=== PATIENT | male | born 1960 | race Caucasian/White ===

== ENCOUNTER 2016-10-12 22:17 | Inpatient (IN) | payer OTHER ==
[~2016-10-12] VITALS: Ht 172.7 cm; Wt 90.6 kg
[~2016-10-12 22:17] MED LIST: DOXY100T PO; PRED20 PO; VENTAER INH
[2016-10-12 22:19] VITALS: BP 130/92; PULSE 110; RESP 20; TEMP 98; O2SAT 88
[2016-10-12 22:28] VITALS: BP 131/69; PULSE 109; RESP 28; TEMP 98.4; O2SAT 88
[2016-10-12] MEDS ORDERED: RESP: ALBUTEROL 2.5 MG/IPRATROPIUM 0.5 MG NEB (SCH) ONE (22:32)
[2016-10-12 22:44] VITALS: O2SAT 96
[2016-10-12] MEDS ORDERED: RESP: ALBUTEROL 2.5 MG/IPRATROPIUM 0.5 MG NEB (SCH) INH (22:45)
[2016-10-12] MEDS ORDERED: SODIUM CHLORIDE 0.9% FLUSH 5 ML FLUSH IVF PRN (22:45)
[2016-10-12] MEDS ORDERED: methylPREDNISolone SOD SUCC 125 MG/2 ML VIAL IVP ONE (22:45)
--- NOTE | 2016-10-12 23:01 | RADRPT ---
EXAM DATE/TIME: 10/12/2016 22:50 [facility] COMPARISON: No previous studies available for comparison. INDICATIONS : Shortness of breath. MEDICAL HISTORY : None. SURGICAL HISTORY : None. ENCOUNTER: Initial ACUITY: 1 day PAIN SCORE: 0/10 LOCATION: Bilateral chest FINDINGS: One extensive infiltrate has developed in the left mid and lower lung with bandlike areas of scarring , probably superimposed on underlying bullous emphysematous changes. This has probably been present f or quite some time but is entirely new compared to the 2013 comparison. The right lung remains clear. There is no pleural effusion. No pneumothorax on the right and no definite pneumothorax on the left. Heart size stable, within normal limits. CONCLUSION: Extensive infiltrate with scarring left mid to lower lung has developed since 2013. Sean nAdrew MD on October 12, 2016 at 22:57 Board Certified Radiologist. This report was verified electronically.
[2016-10-12 23:12] LABS: AUTOMATED NEUTROPHIL # 9.1 TH/MM3 (1.8-7.7); BASOPHIL # 0.1 TH/MM3 (0-0.2); BASOPHIL % 0.9 % (0.0-2.0); EOSINOPHIL # 1.1 TH/MM3 (0-0.4); EOSINOPHIL % 8.3 % (0.0-4.0); HEMATOCRIT 36.1 % (39.0-51.0); LYMPH % 10.9 % (9.0-44.0); LYMPHOCYTE # 1.4 TH/MM3 (1.0-4.8); MEAN CELL VOLUME 86.8 FL (80.0-100.0); MEAN CORPUSCULAR HGB CONC 34.6 % (32.0-36.0); MONO % 9.4 % (0.0-8.0); NEUT % 70.5 % (16.0-70.0); PLATELET COUNT 317 TH/MM3 (150-450); RED BLOOD COUNT 4.16 MIL/MM3 (4.50-5.90); RED CELL DISTRIBUTION WIDTH 16.6 % (11.6-17.2); WHITE BLOOD COUNT 12.9 TH/MM3 (4.0-11.0)
[2016-10-12 23:15] LABS: HEMO FLAGS AUTO DIFF
[2016-10-12] MEDS ORDERED: RESP: ALBUTEROL 2.5 MG/IPRATROPIUM 0.5 MG NEB (SCH) INH ONE (23:15)
[2016-10-12 23:20] LABS: APTT (PATIENT) 28.2 SEC (24.3-30.1); INTERNATIONAL NORMALIZED RATIO 1.1 RATIO; PROTHROMBIN TIME - PATIENT 11.8 SEC (9.8-11.6)
[2016-10-12 23:21] LABS: ALT (GPT) 40 U/L (12-78); ANION GAP 8 MEQ/L (5-15); AST (GOT) 21 U/L (15-37); BICARBONATE 25.6 MEQ/L (21.0-32.0); BLOOD UREA NITROGEN 23 MG/DL (7-18); CHLORIDE 105 MEQ/L (98-107); GLOMERULAR FILTRATION RATE 103 ML/MIN (>89); MAGNESIUM 1.7 MG/DL (1.5-2.5); POTASSIUM 3.7 MEQ/L (3.5-5.1); SODIUM (NA) 139 MEQ/L (136-145)
[2016-10-12 23:29] LABS: ALKALINE PHOSPHATASE 103 U/L (45-117); TOTAL BILIRUBIN ADULT 0.5 MG/DL (0.2-1.0)
[2016-10-12 23:30] LABS: CREATINE KINASE 66 U/L (39-308)
--- NOTE | 2016-10-12 23:49 | RADRPT ---
EXAM DATE/TIME: 10/12/2016 22:55 [facility] COMPARISON: No previous studies available for comparison. INDICATIONS : Bilateral leg swelling and shortness of breath. MEDICAL HISTORY : Chronic obstructive pulmonary disease. SURGICAL HISTORY : Left digit repair. ENCOUNTER: Initial ACUITY: 1 day PAIN SCORE: 0/10 LOCATION: Bilateral legs. TECHNIQUE: Venous ultrasound of the left and right leg was performed from the inguinal ligament to the proximal calf. Real-time, color Doppler and spectral tracing, compression and augmentation techniques were us ed. FINDINGS: RIGHT LEG: There is normal compressibility of the deep venous system from the inguinal region to the proximal ca lf. No echogenic clot is seen in the lumen of the common femoral, femoral, popliteal, and posterior tibial veins. There is a normal response of the venous system to proximal and distal augmentation an d respiration. LEFT LEG: There is normal compressibility of the deep venous system from the inguinal region to the proximal ca lf. No echogenic clot is seen in the lumen of the common femoral, femoral, popliteal, and posterior tibial veins. There is a normal response of the venous system to proximal and distal augmentation an d respiration. CONCLUSION: No DVT of either lower extremity. Sean Andrew MD on October 12, 2016 at 23:47 Board Certified Radiologist. This report was verified electronically.
[2016-10-12 23:54] LABS: BANDS 23 % (0-6); EOSINOPHILS 14 % (0-4); NEUTROPHIL # MANUAL DIFF 8.8 TH/MM3 (1.8-7.7); PLATELET ESTIMATE SMEAR NORMAL (NORMAL); PLATELET MORPHOLOGY NORMAL (NORMAL); POLYS (SEG NEUTROPHILS) 45 % (16-70); SCAN/DIFF FINAL DIFF MANUAL; WBC DIFF SAMPLE 100
[2016-10-13] VITALS (10 sets, daily range): BP systolic 97–110; BP diastolic 55–66; PULSE 89–99; RESP 17–28; TEMP 97.4–99.3; O2SAT 93–95
--- NOTE | 2016-10-13 00:23 | PD ---
HPI Chief Complaint: Respiratory Distress Time Seen by Provider: 22:22 Travel History International Travel<30 days: No Contact w/Intl Traveler<30days: No Traveled to known affect area: No History of Present Illness HPI The patient is a 56 year old male who presents to the [facility] emergency department with a history of shortness of breath that has been coming and going for the last 3-4 weeks. He did see his primary care physician regarding this and was given a course of antibiotic for 14 days and a steroid taper over 10 days. He reports that he completed this approximately week and a half ago and the symptoms have worsened again. He reports that he has chest congestion with rattling in his chest, however he is not able to bring anything up consistently. He reports that when he is occasionally able to bring up a brown sputum. He reports that he had a fever yesterday with a MAXIMUM TEMPERATURE of 100.7. He reports having chest tightness, however no chest pain. The patient has had lower extremity edema with pain behind bilateral knees. He denies any prior history of congestive heart failure or coronary artery disease. The patient denies any neck pain, abdominal pain, vomiting, diarrhea, urinary symptoms, or neurologic symptoms. [facility] Past Medical History Narrative Medical The patient's past medical history is significant for COPD. COPD: Yes Respiratory: Yes (copd) Past Surgical History Narrative Surgical The patient's Past surgical history is significant for a left hand surgery. Social History Alcohol Use: No Tobacco Use: Yes (09/15 PPD) Substance Use: Yes (OCCAS MARIJUANA) Allergies-Medications (Allergen,Severity, Reaction): Coded Allergies: No Known Allergies (Unverified , 10/12/16) Reported Meds & Prescriptions Reported Meds & Active Scripts Active Vibramycin (Doxycycline Hyclate) 100 Mg Cap 1 Tab PO BID Deltasone (Prednisone) 20 Mg Tab 2 Tab PO DAILY 5 Days Ventolin Hfa (Albuterol Sulfate) 18 Gm Aero 2 Puff INH Q4 PRN Review of Systems Except as stated in HPI: all other systems reviewed are Neg General / Constitutional: Positive: Fever, Chills Eyes: No: Visual changes HENT: No: Headaches Cardiovascular: Positive: Chest Pain or Discomfort (chest tightness), Dyspnea on exertion Respiratory: Positive: Cough, Shortness of Breath Gastrointestinal: No: Abdominal Pain Genitourinary: No: Dysuria Musculoskeletal: No: Pain Skin: No Rash Neurologic: Positive: Weakness (generalized weakness), No: Focal Abnormalities , Change in Mentation, Slurred Speech, Sensory Disturbance Psychiatric: No: Depression Endocrine: No: Polydipsia Hematologic/Lymphatic: No: Easy Bruising Physical Exam Narrative General: The patient is a well-developed well-nourished male who is uncomfortable appearing due to shortness of breath, sitting forward, using accessory muscles with conversational dyspnea noted Head and Neck exam: Head is normocephalic atraumatic. Eyes: Pupils are equal round and reactive to light. Nose: Midline septum with pink mucous membranes Mouth: Dentition unremarkable. Moist mucus membranes. Posterior oropharynx is slightly erythematous with thrush noted along the posterior oropharynx. No tonsillar hypertrophy. Uvula midline. Airway patent. Neck: No palpable lymphadenopathy. No nuchal rigidity. No thyromegaly. Cardiovascular: Sinus tachycardia in the low 100s without murmurs, gallops, or rubs. No pulse deficit to the extremities and simultaneous auscultation and palpation of his radial artery. Lungs: Soft expiratory wheezes audible throughout bilateral lung grider anteriorly and posteriorly with the prolonged expiratory phase of breathing and accessory muscle use noted. No rhonchi or crackles noted. Abdomen: Soft, without tenderness to palpation in all 4 quadrants of the abdomen. No guarding, rebound, or rigidity. Normal bowel sounds are audible. Extremities: No clubbing or cyanosis with 1+ pitting edema bilateral lower extremities. 2+ pulses in all 4 extremities. The patient has no calf tenderness on palpation. Back: No spinous process tenderness to palpation. No costovertebral angle tenderness to palpation. Neurologic Exam: Grossly nonfocal. Skin Exam: No rash noted. Intact skin that is warm and dry. Data Data Last Documented VS Vital Signs Date Time Temp Pulse Resp B/P Pulse Ox O2 Delivery O2 Flow Rate FiO2 10/12/16 22:44 96 Nasal Cannula 3.00 10/12/16 22:28 98.4 109 28 131/69 Orders Albuterol-Ipratropium Neb (Duoneb Neb) (10/12/16 22:32) Complete Blood Count With Diff (10/12/16 22:33) Comprehensive Metabolic Panel (10/12/16 22:33) B-Type Natriuretic Peptide (10/12/16 22:33) Act Partial Throm Time (Ptt) (10/12/16 22:33) Prothrombin Time / Inr (Pt) (10/12/16 22:33) Magnesium (Mg) (10/12/16 22:33) Ckmb (Isoenzyme) Profile (10/12/16 22:33) Troponin I (10/12/16 22:33) Iv Access Insert/Monitor (10/12/16 22:33) Electrocardiogram (10/12/16 22:33) Ecg Monitoring (10/12/16 22:33) Oximetry (10/12/16 22:33) Oxygen Administration (10/12/16 22:33) Chest, Single Ap (10/12/16 22:33) Sodium Chloride 0.9% Flush (Ns Flush) (10/12/16 22:45) Methylprednisolone So Succ Inj (Solumedr (10/12/16 22:45) Albuterol-Ipratropium Neb (Duoneb Neb) (10/12/16 22:45) Us Leg Venous Doppler Bilat (10/12/16 22:41) B-Type Natriuretic Peptide (10/12/16 22:42) D-Dimer (10/12/16 22:42) Blood Culture (10/12/16 22:49) Lactic Acid Sepsis Protocol (10/12/16 22:49) Albuterol-Ipratropium Neb (Duoneb Neb) (10/12/16 23:15) Ct Pulmonary Angiogram (10/13/16 00:42) Ceftriaxone Inj (Rocephin Inj) (10/13/16 00:45) Azithromycin Inj (Zithromax Inj) (10/13/16 00:45) Iohexol 350 Inj (Omnipaque 350 Inj) (10/13/16 01:02) Admit Order (Ed Use Only) (10/13/16 01:22) Labs Laboratory Tests Test 10/12/16 10/12/16 22:50 23:30 White Blood Count 12.9 TH/MM3 Red Blood Count 4.16 MIL/MM3 Hemoglobin 12.5 GM/DL Hematocrit 36.1 % Mean Corpuscular Volume 86.8 FL Mean Corpuscular Hemoglobin 30.0 PG Mean Corpuscular Hemoglobin 34.6 % Concent Red Cell Distribution Width 16.6 % Platelet Count 317 TH/MM3 Mean Platelet Volume 7.9 FL Neutrophils (%) (Auto) 70.5 % Lymphocytes (%) (Auto) 10.9 % Monocytes (%) (Auto) 9.4 % Eosinophils (%) (Auto) 8.3 % Basophils (%) (Auto) 0.9 % Neutrophils # (Auto) 9.1 TH/MM3 Lymphocytes # (Auto) 1.4 TH/MM3 Monocytes # (Auto) 1.2 TH/MM3 Eosinophils # (Auto) 1.1 TH/MM3 Basophils # (Auto) 0.1 TH/MM3 CBC Comment AUTO DIFF Differential Total Cells 100 Counted Neutrophils % (Manual) 45 % Band Neutrophils % 23 % Lymphocytes % 12 % Monocytes % 6 % Eosinophils % 14 % Neutrophils # (Manual) 8.8 TH/MM3 Differential Comment FINAL DIFF MANUAL Platelet Estimate NORMAL Platelet Morphology Comment NORMAL Prothrombin Time 11.8 SEC Prothromb Time International 1.1 RATIO Ratio Activated Partial 28.2 SEC Thromboplast Time Sodium Level 139 MEQ/L Potassium Level 3.7 MEQ/L Chloride Level 105 MEQ/L Carbon Dioxide Level 25.6 MEQ/L Anion Gap 8 MEQ/L Blood Urea Nitrogen 23 MG/DL Creatinine 0.78 MG/DL Estimat Glomerular Filtration 103 ML/MIN Rate Random Glucose 128 MG/DL Calcium Level 8.5 MG/DL Magnesium Level 1.7 MG/DL Total Bilirubin 0.5 MG/DL Aspartate Amino Transf 21 U/L (AST/SGOT) Alanine Aminotransferase 40 U/L (ALT/SGPT) Alkaline Phosphatase 103 U/L Total Creatine Kinase 66 U/L Troponin I LESS THAN 0.02 NG/ML B-Type Natriuretic Peptide 43 PG/ML 42 PG/ML Total Protein 6.4 GM/DL Albumin 1.9 GM/DL D-Dimer Quantitative (PE/DVT) 5.31 MG/L FEU Lactic Acid Level 0.8 mmol/L [facility] Medical Decision Making Medical Screen Exam Complete: Yes Emergency Medical Condition: Yes Medical Record Reviewed: Yes Interpretation(s) Last Impressions CT Angiography 10/13/16 0042 Signed Impressions: Service Date/Time: Thursday, October 13, 2016 00:56 - CONCLUSION: 1. No pulmonary embolus. 2. Suspected cor pulmonale. 3. Severe emphysema. 4. Essentially complete consolidation of the non-emphysematous portion of the left upper lobe. Numerous fluid and air-filled cystic spaces, nonspecific. This may be inability to clear secretions from the bulla. Pulmonary abscesses not excludable. 5. Mediastinal and left hilar lymphadenopathy. Sean Andrew MD Lower Extremity Ultrasound 10/12/162240 Signed Impressions: Service Date/Time: Wednesday, October 12, 2016 22:55 - CONCLUSION: No DVT of either lower extremity. Sean Andrew MD Chest X-Ray 10/12/162232 Signed Impressions: Service Date/Time: Wednesday, October 12, 2016 22:50 - CONCLUSION: Extensive infiltrate with scarring left mid to lower lung has developed since 2013. Sean Andrew MD Differential Diagnosis COPD exacerbation, versus pneumonia, versus pulmonary embolism, versus acute coronary syndrome, versus acute bronchitis, versus pulmonary fibrosis Narrative Course During the course of the patients emergency department visit, the patients history, examination, and differential diagnosis were reviewed with the patient. The patient had IV access obtained and blood work sent for analysis. The patient was placed on a central communications specialist with oximetry and blood pressure monitoring. An ultrasound of bilateral lower extremities was ordered to evaluate for possible DVT. The patient was provided DuoNeb nebs 3, Solu-Medrol 125 mg IV, Rocephin 1 g IV , Zithromax 500 IV. The patients laboratory studies were reviewed and remarkable for a d-dimer that was elevated, therefore CTA to rule out PE was ordered. White count was elevated at 12 with a left shift. Lactic acid was 0.8. Cardiac enzymes were negative. BNP within normal limits. Radiology studies were reviewed and remarkable for CTA to rule out PE was negative. Chest x-ray showed a left middle to lower infiltrate. CT scan of the chest revealed evidence of emphysematous changes. The patients results were discussed with the patient, including the plan of care. I explained that further testing and/ or monitoring is indicated based on the patients history, examination, and/ or laboratory findings. Therefore, I recommended admission for additional evaluation. The patient expressed understanding and was agreeable with this plan. The patient was admitted to the hospital in stable condition and [facility] Sepsis Criteria SIRS Criteria (2 or more): Heart rate over 90, RR > 20 or PaCO2 < 32, WBC > 88948, < 4000 or > 10% bands Sepsis Criteria (SIRS+source): Infect source susp/known Physician Communication Physician Communication The patient's case is discussed with Dr. Patino who did agree to admit the patient for further evaluation and treatment at this time. Diagnosis Primary Impression: PNA (pneumonia) Qualified Code: J18.9 - Pneumonia of left lung due to infectious organism, unspecified part of lung Additional Impressions: Sepsis Qualified Code: A41.9 - Sepsis, due to unspecified organism COPD exacerbation Admitting Information Admitting Physician Requests: Admit Isabelle Burkett MD Oct 13, 2016 00:23
[2016-10-13] MEDS ORDERED: cefTRIAXone INJ 1,000 MG in SODIUM CHLORIDE 0.9% INJ 100 ML IV ONE (00:45)
[2016-10-13] MEDS ORDERED: AZITHROMYCIN INJ 500 MG in SODIUM CHLOR 0.9% 250 ML INJ 250 ML IV ONE (00:45)
[2016-10-13] MEDS ORDERED: IOHEXOL 350 MG/ML 10 ML VIAL (for RAD DIAG) IV ONE (01:02)
--- NOTE | 2016-10-13 01:27 | RADRPT ---
EXAM DATE/TIME: 10/13/2016 00:56 [facility] COMPARISON: No previous studies available for comparison. INDICATIONS : Short of breath x1 month. IV CONTRAST: 75 cc Omnipaque 350 (iohexol) IV RADIATION DOSE: 17.39 CTDIvol (mGy) MEDICAL HISTORY : Chronic obstructive pulmonary disease. SURGICAL HISTORY : None. ENCOUNTER: Initial ACUITY: 1 month PAIN SCALE: 0/10 LOCATION: chest TECHNIQUE: Volumetric scanning of the chest was performed using a pulmonary embolism protocol MIP images were re constructed. Using automated exposure control and adjustment of the mA and/or kV according to patien t size, radiation dose was kept as low as reasonably achievable to obtain optimal diagnostic quality images. FINDINGS: There is no pulmonary embolus. Central pulmonary arteries have prominent caliber typical of pulmonary hypertension and likely on the basis of cor pulmonale. Heart size within normal limits. Severe bilateral emphysema noted. There is extensive consolidation of the non-emphysematous port ion of the left upper lobe, including the lingular division. Within the consolidated left upper lobe are scattered air and fluid-filled cystic spaces that measure up between one and 4 cm in size. There is a 2.7 cm left hilar lymph node. There are also mediastinal lymph nodes, most prominent in the AP w indow, that measure up to 2.7 cm in size. No pleural effusion. No pneumothorax. CONCLUSION: 1. No pulmonary embolus. 2. Suspected cor pulmonale. 3. Severe emphysema. 4. Essentially complete consolidation of the non-emphysematous portion of the left upper lobe. Basim us fluid and air-filled cystic spaces, nonspecific. This may be inability to clear secretions from th e bulla. Pulmonary abscesses not excludable. 5. Mediastinal and left hilar lymphadenopathy. Sean Andrew MD on October 13, 2016 at 1:20 Board Certified Radiologist. This report was verified electronically.
[2016-10-13] MEDS ORDERED: ONDANSETRON HCL 4 MG/2 ML VIAL IVP PRN (02:00)
[2016-10-13] MEDS ORDERED: ACETAMINOPHEN/HYDROcodone 325 MG/5 MG TAB PO PRN (02:00)
[2016-10-13] MEDS ORDERED: SODIUM CHLORIDE 0.9% FLUSH 5 ML FLUSH FLUSH PRN (02:00)
[2016-10-13] MEDS ORDERED: ACETAMINOPHEN/HYDROcodone 325 MG/10 MG TAB PO PRN (02:00)
[2016-10-13] MEDS ORDERED: RESP: ALBUTEROL 2.5 MG/IPRATROPIUM 0.5 MG NEB (PRN) NEB (02:00)
[2016-10-13] MEDS ORDERED: ACETAMINOPHEN 325 MG TAB PO PRN (02:00)
[2016-10-13] MEDS ORDERED: BISACODYL 10 MG SUPP PR PRN (02:00)
--- NOTE | 2016-10-13 02:46 | HHI.HP ---
[facility], Admission Diagnosis COPD exacerbation, hypoxia on Room air, Pneumonia Diagnoses: (1) COPD (chronic obstructive pulmonary disease) Diagnosis: Principal (2) PNA (pneumonia) Diagnosis: Principal (3) Hypoxia Diagnosis: Principal (4) Tobacco abuse Diagnosis: [place] Travel History International Travel<30 Days: No Contact w/Intl Traveler <30 Da: No Traveled to Known Affected Are: No History of Present Illness This is a 56-year-old male with a PMH of COPD and Tobacco Abuse who presented to the ER with complaints of SOB and wheezing. States symptoms started approx 3wks ago, seen by PCP and given Medrol Dosepak and Doxycycline 100mg bid x14 days which he completed. States he's been having ongoing SOB since then in addition to productive cough w/ brown-colored sputum. +fever at home w/ Temp 100.7. No chest pain or sick contacts. On arrival, BP 130/92, HR 110, O2 sat 88% on RA, Afebrile. WBC 12.9. Chemistry essentially unremarkable. CXR with extensive infiltrate left mid to lower lung. CTA Pulm negative for PE, suspected cor pulmonale, severe emphysema and essentially complete consolidation of LAURA w/ possible pulmonary abscesses. S/p Rocephin/Zithro in ER in addition to Blood Cultures. Review of Systems Other ROS: 14 point review of systems otherwise negative. Past Family Social History Past Medical History PMH: COPD and Tobacco Abuse Past Surgical History PAST SURGICAL HISTORY: Left Hand Surgery Allergies: Coded Allergies: No Known Allergies (Unverified , 10/12/16) Family History PAST FAMILY HISTORY: Reviewed. No h/o DM or CAD Social History PAST SOCIAL HISTORY: Negative for alcohol. Smokes 1/2ppd. Occasional Marijuan. Physical Exam Vital Signs Vital Signs Date Time Temp Pulse Resp B/P Pulse Ox O2 Delivery O2 Flow Rate FiO2 10/12/16 22:44 96 Nasal Cannula 3.00 10/12/16 22:28 98.4 109 28 131/69 88 10/12/16 22:28 95 Nasal Cannula 2 10/12/16 22:28 28 95 Nasal Cannula 2 10/12/16 22:19 98.0 110 20 130/92 88 Physical Exam PE: GENERAL: Middle-aged white male in no acute distress. HEENT: PERRLA, EOMI. No scleral icterus or conjunctival pallor. No lid lag or facial droop. CARDIOVASCULAR: Regular rate and rhythm. No obvious murmurs to auscultation. No chest tenderness to palpation. RESPIRATORY: No obvious rhonchi. +wheezing. Clear to auscultation. Breath sounds equal bilaterally. GASTROINTESTINAL: Abdomen soft, non-tender, nondistended. BS normal. MUSCULOSKELETAL: Extremities without clubbing, cyanosis, or edema. No obvious deformities. NEUROLOGICAL: Awake, alert and oriented x4. No focal neurologic deficits. Moving both upper and lower extremities spontaneously. Laboratory Laboratory Tests Test 10/12/16 10/12/16 22:50 23:30 White Blood Count 12.9 Red Blood Count 4.16 Hemoglobin 12.5 Hematocrit 36.1 Mean Corpuscular Volume 86.8 Mean Corpuscular Hemoglobin 30.0 Mean Corpuscular Hemoglobin 34.6 Concent Red Cell Distribution Width 16.6 Platelet Count 317 Mean Platelet Volume 7.9 Neutrophils (%) (Auto) 70.5 Lymphocytes (%) (Auto) 10.9 Monocytes (%) (Auto) 9.4 Eosinophils (%) (Auto) 8.3 Basophils (%) (Auto) 0.9 Neutrophils # (Auto) 9.1 Lymphocytes # (Auto) 1.4 Monocytes # (Auto) 1.2 Eosinophils # (Auto) 1.1 Basophils # (Auto) 0.1 CBC Comment AUTO DIFF Differential Total Cells 100 Counted Neutrophils % (Manual) 45 Band Neutrophils % 23 Lymphocytes % 12 Monocytes % 6 Eosinophils % 14 Neutrophils # (Manual) 8.8 Differential Comment FINAL DIFF MANUAL Platelet Estimate NORMAL Platelet Morphology Comment NORMAL Prothrombin Time 11.8 Prothromb Time International 1.1 Ratio Activated Partial 28.2 Thromboplast Time Sodium Level 139 Potassium Level 3.7 Chloride Level 105 Carbon Dioxide Level 25.6 Anion Gap 8 Blood Urea Nitrogen 23 Creatinine 0.78 Estimat Glomerular Filtration 103 Rate Random Glucose 128 Calcium Level 8.5 Magnesium Level 1.7 Total Bilirubin 0.5 Aspartate Amino Transf 21 (AST/SGOT) Alanine Aminotransferase 40 (ALT/SGPT) Alkaline Phosphatase 103 Total Creatine Kinase 66 Troponin I LESS THAN 0.02 B-Type Natriuretic Peptide 43 42 Total Protein 6.4 Albumin 1.9 D-Dimer Quantitative (PE/DVT) 5.31 Lactic Acid Level 0.8 Date/Time Procedure Status Source Growth 10/12/16 23:35 Aerobic Blood Culture Received Blood Peripheral Pending 10/12/16 23:35 Anaerobic Blood Culture Received Blood Peripheral Pending Result Diagram: 10/12/16224910/12/162249 Assessment and Plan Problem List: (1) COPD (chronic obstructive pulmonary disease) ICD Code: J44.9 Status: Acute (2) Hypoxia ICD Code: R09.02 Status: Acute (3) PNA (pneumonia) ICD Code: J18.9 Status: Acute (4) Tobacco abuse ICD Code: Z72.0 Status: Acute Assessment and Plan A/P: 1. COPD: Chronic Respiratory Failure w/ Acute Exacerbation and Hypoxia, O2 sat 88% on arrival. +wheezing, +accessory muscles, s/p Solu-Medrol, DuoNeb. Continue w/ Solu-Medrol, DuoNeb, Mucinex, Symbicort. 2. PNA: CXR w/ extensive infiltrate and scarring left mid to lower lung, CTA pulm negative for PE, likely cor pulmonale, severe emphysema, near complete consolidation LAURA and possible pulmonary abscesses, images reviewed by me. S/p Blood Cultures, Rocephin/Zithro in ER. Follow up Blood Cultures, check Sputum Cultures, continue w/ IV Abx. Pulmonary Consult 3. Tobacco Abuse: Counselled. Ativan/NicoDerm if needed. 4. DVT Prophylaxis: SCD/Teds. 5. Social work for d/c planning as needed. 6. Case discussed w/ ER physician at length. Physician Certification 2 Midnight Certification Type: Admission for Inpatient Services Order for Inpatient Services The services are ordered in accordance with Medicare regulations or non- Medicare payer requirements, as applicable. In the case of services not specified as inpatient-only, they are appropriately provided as inpatient services in accordance with the 2-midnight benchmark. Estimated LOS (days): 2 days is the estimated time the patient will need to remain in the hospital, assuming treatment plan goals are met and no additional complications. Post-Hospital Plan: Not yet determined Kim Patino MD Oct 13, 2016 02:46
[2016-10-13] MEDS: SODIUM CHLORIDE 0.9% FLUSH 5 ML FLUSH FLUSH SCH ×2 (07:43→22:42)
[2016-10-13] MEDS: guaiFENesin E.R. 600 MG TAB PO SCH ×2 (07:43→22:42)
[2016-10-13] MEDS: methylPREDNISolone SOD SUCC 40 MG/1 ML VIAL IV PUSH SCH ×3 (07:43→17:28)
[2016-10-13] MEDS: BUDESONIDE-FORMOTEROL 160/4.5 MCG INHALER INH SCH ×2 (07:43→22:41)
--- NOTE | 2016-10-13 08:31 | EKG ---
Date Performed: 10/12/2016 Time Performed: 23:55:20 PTAGE: 56 years EKG: SINUS TACHYCARDIA WITH SHORT OH INTERVAL ABNORMAL RHYTHM ECG PREVIOUS TRACING : 12/10/2013 08.11 No significant change from previous tracing noted. DOCTOR: Bartolome Shah Interpretating Date/Time 10/13/2016 08:29:41
[2016-10-13] MEDS: RESP: ALBUTEROL 2.5 MG/IPRATROPIUM 0.5 MG NEB (SCH) NEB ×4 (08:36→20:21)
[2016-10-13] MEDS ORDERED: Vancomycin Consult Pharmacy 1 EA OTHER SCH (12:30)
[2016-10-13] MEDS: PIPERACIL-TAZO 4.5 GM PREMIX 100 ML IV SCH ×2 (13:16→22:42)
[2016-10-13] MEDS: VANCOMYCIN INJ 1,500 MG in SODIUM CHLORID 0.9% 500 ML INJ 500 ML IV SCH (14:16)
--- NOTE | 2016-10-13 16:08 | HHI.PR ---
Addendum To [facility] Progress Not Reason for addendum: Additonal documentation (The pt was getting a breathing treatment. He said he felt a lot better. Discussed with pulmonology. Continue antibiotics, switch to vancomycin and Zosyn. Continue steroids and nebs. Add incentive spirometry. Encourage ambulation. Add Ensure for low albumin, likely contributing to LE edema. Sputum culture requested. Follow up with pulmonology.) Willard Cosby DO Oct 13, 2016 16:08
[2016-10-14] VITALS (10 sets, daily range): BP systolic 92–118; BP diastolic 51–69; PULSE 81–97; RESP 17–28; TEMP 97.2–98.1; O2SAT 93–95
[2016-10-14] MEDS: methylPREDNISolone SOD SUCC 40 MG/1 ML VIAL IV PUSH SCH ×4 (00:01→17:47)
[2016-10-14] MEDS ORDERED: AZITHROMYCIN INJ 500 MG in SODIUM CHLOR 0.9% 250 ML INJ 250 ML IV SCH (01:00)
[2016-10-14] MEDS: PIPERACIL-TAZO 4.5 GM PREMIX 100 ML IV SCH ×2 (01:16→08:48)
[2016-10-14] MEDS ORDERED: cefTRIAXone INJ 1,000 MG in SODIUM CHLORIDE 0.9% INJ 100 ML IV SCH (02:00)
[2016-10-14] MEDS: VANCOMYCIN INJ 1,500 MG in SODIUM CHLORID 0.9% 500 ML INJ 500 ML IV SCH (02:00)
[2016-10-14 06:56] LABS: AUTOMATED NEUTROPHIL # 12.7 TH/MM3 (1.8-7.7); BASOPHIL % 0.2 % (0.0-2.0); EOSINOPHIL % 0.1 % (0.0-4.0); HEMATOCRIT 30.4 % (39.0-51.0); HEMO FLAGS DIFF FINAL; LYMPH % 7.8 % (9.0-44.0); LYMPHOCYTE # 1.2 TH/MM3 (1.0-4.8); MEAN CELL VOLUME 86.7 FL (80.0-100.0); MEAN CORPUSCULAR HEMOGLOBIN 29.8 PG (27.0-34.0); MEAN CORPUSCULAR HGB CONC 34.4 % (32.0-36.0); MONO % 5.2 % (0.0-8.0); NEUT % 86.7 % (16.0-70.0); PLATELET COUNT 320 TH/MM3 (150-450); RED BLOOD COUNT 3.51 MIL/MM3 (4.50-5.90); RED CELL DISTRIBUTION WIDTH 16.9 % (11.6-17.2); WHITE BLOOD COUNT 14.7 TH/MM3 (4.0-11.0)
--- NOTE | 2016-10-14 07:16 | MB ---
cc: BRONSON CARRION DATE OF CONSULTATION 10/13/2016 REASON FOR CONSULTATION COPD with exacerbation. HISTORY OF PRESENT ILLNESS This is a 56-year-old white male with past history of COPD and emphysema, has been a smoker for more than 45 years. The patient apparently had some bronchitis since the past three weeks and was treated with oral antibiotics including doxycycline and Medrol and he failed to improve. He was bringing up thick brownish-yellow mucous, ran a fever of up to 100.6 and he was advised to come in for evaluation and admission. Upon arrival, a chest x-ray was done which showed which showed an extensive left lung infiltrate. CTA was done which showed some hilar and mediastinal adenopathy on the left side. The patient has been short of breath and thus on oxygen at 2 liters and started on IV Rocephin and Zithromax. He has no hemoptysis but has lost some weight. PAST HISTORY COPD with emphysema. History of hand surgery on the left. HABITS The patient smokes half to one pack per day. Previously smoked one to two packs per day for over 40 years. Alcohol use - None recently. He uses marijuana occasionally. FAMILY HISTORY Noncontributory. REVIEW OF SYSTEMS The patient has lost weight. He has sinus disease, postnasal drip. He has some epigastric distress and reflux. Denies nausea, vomiting. No GI bleed. He has no leg or calf muscle pains. She has some joint pains of his extremities. ALLERGIES None listed. PHYSICAL EXAMINATION GENERAL: This averagely built middle-aged white male was in no acute distress. VITAL SIGNS: Blood pressure 130/70, pulse is 105, respirations 20, temperature 98.5. HEENT: Head normocephalic. Pupils are reactive. Tongue is moist. Throat is injected. Nasal mucosae edematous. NECK: Supple. No bruits or thyroid enlargement. CHEST: Distant breath sounds with expiratory wheezes throughout both lung grider. Occasional crackles over the left mid and lower chest and right lung base. HEART SOUNDS: Irregular S1 and S2 with no murmur. No S3 gallop. ABDOMEN: The abdomen is soft and protuberant without masses. No organomegaly or tenderness. The bowel sounds are active. EXTREMITIES: No lesions. No edema. NEUROLOGIC: Reflexes are 1+ with no gross motor deficits. SKIN: No lesions observed. IMPRESSION 1. Extensive left lower lobe pneumonia and hilar adenopathy. 2. Chronic obstructive pulmonary disease with emphysema and chronic bronchitis. 3. Nicotine dependency. 4. Rule out obstructive pneumonitis. PLAN 1. The patient will be maintained on antibiotic coverage including Rocephin 2 gm IV daily, Zithromax 500 mg IV daily. 2. Solu-Medrol 40 mg IV q.6 hours. 3. Sputum will be sent for Gram's stain and culture. 4. Nebulized DuoNeb solution added q.i.d. 5. A repeat chest x-ray will be obtained. If the infiltrate does not significantly clear, the patient may need a bronchoscopy for evaluation of the left lower lobe bronchus. 6. Pulmonary function studies will also be ordered when he is clinically stable. I will follow the case with you Dr. Patino; thank you for this consultation. Bronson Carrion MD JMADELINE/AMANDA /5:58 PM /6:59 AM
[2016-10-14 07:21] LABS: ALT (GPT) 39 U/L (12-78); ANION GAP 8 MEQ/L (5-15); AST (GOT) 15 U/L (15-37); BICARBONATE 26.8 MEQ/L (21.0-32.0); BLOOD UREA NITROGEN 31 MG/DL (7-18); CHLORIDE 108 MEQ/L (98-107); GLOMERULAR FILTRATION RATE 88 ML/MIN (>89); SODIUM (NA) 143 MEQ/L (136-145)
[2016-10-14 07:23] LABS: ALKALINE PHOSPHATASE 85 U/L (45-117); TOTAL BILIRUBIN ADULT 0.3 MG/DL (0.2-1.0)
[2016-10-14] MEDS: RESP: ALBUTEROL 2.5 MG/IPRATROPIUM 0.5 MG NEB (SCH) NEB ×4 (08:10→19:16)
[2016-10-14] MEDS: guaiFENesin E.R. 600 MG TAB PO SCH ×2 (08:48→20:58)
[2016-10-14] MEDS: SODIUM CHLORIDE 0.9% FLUSH 5 ML FLUSH FLUSH SCH ×2 (08:48→20:57)
[2016-10-14] MEDS: BUDESONIDE-FORMOTEROL 160/4.5 MCG INHALER INH SCH ×2 (08:48→20:58)
[2016-10-14] MEDS ORDERED: LEVOFLOXACIN 750 MG PREMIX INJ 150 ML IV SCH (11:45)
--- NOTE | 2016-10-14 12:01 | HHI.PR ---
Subjective Remarks The patient says that his breathing is better. He still says he is very short of breath upon ambulation and at rest. He says he typically wakes up 3 times a night for shortness of breath. He says his appetite is unchanged. Objective Vitals Vital Signs Date Time Temp Pulse Resp B/P Pulse Ox O2 Delivery O2 Flow Rate FiO2 10/14/16 08:12 93 Nasal Cannula 4.00 10/14/16 08:00 97.9 82 28 96/54 93 10/14/16 07:45 87 10/14/16 04:00 97.2 84 20 102/58 94 10/14/16 00:00 98.0 97 20 102/59 94 10/13/16 20:23 93 Nasal Cannula 3.00 10/13/16 20:09 99 10/13/16 20:00 98.0 98 22 97/56 94 10/13/16 16:00 99.3 91 28 101/58 93 10/13/16 12:00 97.9 94 28 100/66 94 I/O 10/13/16 10/13/16 10/13/16 10/14/16 10/14/16 10/14/16 07:00 15:00 23:00 07:00 15:00 23:00 Intake Total 240 ml 240 ml 802 ml 748 ml Balance 240 ml 240 ml 802 ml 748 ml Intake Oral 240 ml 240 ml 240 ml 240 ml IV Total 562 ml 508 ml # Voids 2 4 1 3 # Bowel Movements 0 0 0 Result Diagram: 10/14/16 0631 10/14/16 [address] Angiography 10/13/16 0042 Signed Impressions: Service Date/Time: Thursday, October 13, 2016 00:56 - CONCLUSION: 1. No pulmonary embolus. 2. Suspected cor pulmonale. 3. Severe emphysema. 4. Essentially complete consolidation of the non-emphysematous portion of the left upper lobe. Numerous fluid and air-filled cystic spaces, nonspecific. This may be inability to clear secretions from the bulla. Pulmonary abscesses not excludable. 5. Mediastinal and left hilar lymphadenopathy. Sean Andrew MD Lower Extremity Ultrasound 10/12/16 9741 Signed Impressions: Service Date/Time: Wednesday, October 12, 2016 22:55 - CONCLUSION: No DVT of either lower extremity. Sean Andrew MD Chest X-Ray 10/12/16 4170 Signed Impressions: Service Date/Time: Wednesday, October 12, 2016 22:50 - CONCLUSION: Extensive infiltrate with scarring left mid to lower lung has developed since 2013. Sean Andrew MD Objective Remarks GENERAL: No acute distress. HEENT: PERRLA, EOMI. No scleral icterus or conjunctival pallor. No lid lag or facial droop. CARDIOVASCULAR: Regular rate and rhythm. No obvious murmurs to auscultation. No chest tenderness to palpation. RESPIRATORY: Diffuse wheezing. Breath sounds equal bilaterally. GASTROINTESTINAL: Abdomen soft, non-tender, nondistended. BS normal. MUSCULOSKELETAL: Extremities without clubbing, cyanosis, or edema. No obvious deformities. NEUROLOGICAL: Awake, alert and oriented x4. No focal neurologic deficits. Moving both upper and lower extremities spontaneously. PSYCH: Mood and affect appropriate. Medications and IVs Current Medications Medications (Trade) Dose Ordered Sig/[place] Route Start Time Stop Time Status Last Admin (SoluMEDROL INJ) 40 mg Q6HR IV PUSH 10/13/16 06:00 10/14/16 11:17 (Mucinex Er) 600 mg BID PO 10/13/16 09:00 10/14/16 08:48 (Symbicort 160-4.5 Inh) 2 puff Q12HR INH 10/13/16 09:00 10/14/16 08:48 (NS Flush) 2 ml UNSCH PRN FLUSH 10/13/16 02:00 (NS Flush) 2 ml BID FLUSH 10/13/16 09:00 10/14/16 08:48 (Zofran Inj) 4 mg Q6H PRN IVP 10/13/16 02:00 (Dulcolax Supp) 10 mg DAILY PRN [place] 10/13/16 02:00 (Tylenol) 650 mg Q6H PRN PO 10/13/16 02:00 ([place] 5-325 Mg) 1 tab Q4H PRN PO 10/13/16 02:00 Acetaminophen/ Hydrocodone Bitart 1 tab 1 tab Q4H PRN PO 10/13/16 02:00 (Levaquin 750 Mg Premix Inj) 150 ml @ 100 mls/hr Q24H IV 10/14/16 11:45 UNV A/P Problem List: (1) COPD (chronic obstructive pulmonary disease) ICD Code: J44.9 Status: Acute (2) Hypoxia ICD Code: R09.02 Status: Acute (3) PNA (pneumonia) ICD Code: J18.9 Status: Acute (4) Tobacco abuse ICD Code: Z72.0 Status: Acute Assessment and Plan PNA/ COPD The pt has diffuse wheezing on exam. CXR w/ extensive infiltrate and scarring left mid to lower lung, CTA pulm negative for PE, likely cor pulmonale, severe emphysema, near complete consolidation LAURA. Pulmonology consult appreciated. - Blood and sputum cultures. - continue Rocephin/Zithro. - follow up with pulmonary. Bronch if needed. - Continue w/ Solu-Medrol, DuoNeb, Mucinex, Symbicort. - incentive spirometry. - encourage ambulation. Tobacco Abuse Counselled. - Ativan/NicoDerm if needed. Hyperglycemia S/t steroid use. - monitor glucose and wean steroids as tolerated. DVT Prophylaxis: SCD/Teds. Discharge Planning Awaiting clinical improvement. Problem Qualifiers (1) PNA (pneumonia): Qualified Code: J18.9 - Pneumonia of left lung due to infectious organism, unspecified part of lung Willard Cosby DO Oct 14, 2016 12:00
[2016-10-14] MEDS ORDERED: DEXTROSE 50% IN WATER 50 ML VIAL(D50) IV PRN (12:15)
[2016-10-14] MEDS ORDERED: GLUCAGON 1 MG/ML VIAL OTHER PRN (12:15)
[2016-10-14] MEDS: cefTRIAXone INJ 1,000 MG in SODIUM CHLORIDE 0.9% INJ 100 ML IV SCH (13:55)
[2016-10-14] MEDS: AZITHROMYCIN INJ 500 MG in SODIUM CHLOR 0.9% 250 ML INJ 250 ML IV SCH (15:09)
[2016-10-14] MEDS: INSULIN ASPART SUPPLEMENTAL SCALE SQ SCH ×2 (16:41→20:58)
--- NOTE | 2016-10-14 19:27 | HHI.PR ---
Subjective Remarks Doing better. Still has wheezing and a cough, with yellow sputum Objective Vital Signs Date Time Temp Pulse Resp B/P Pulse Ox O2 Delivery O2 Flow Rate FiO2 10/14/16 16:00 98.0 90 24 93/54 95 10/14/16 15:54 95 Nasal Cannula 4.00 10/14/16 12:15 95 Nasal Cannula 4.00 10/14/16 12:00 98.1 90 20 92/51 95 10/14/16 08:12 93 Nasal Cannula 4.00 10/14/16 08:00 97.9 82 28 96/54 93 10/14/16 07:45 87 10/14/16 04:00 97.2 84 20 102/58 94 10/14/16 00:00 98.0 97 20 102/59 94 10/13/16 20:23 93 Nasal Cannula 3.00 10/13/16 20:09 99 10/13/16 20:00 98.0 98 22 97/56 94 I/O 10/13/16 10/13/16 10/13/16 10/14/16 10/14/16 10/14/16 07:00 15:00 23:00 07:00 15:00 23:00 Intake Total 240 ml 240 ml 802 ml 748 ml 580 ml Balance 240 ml 240 ml 802 ml 748 ml 580 ml Intake Oral 240 ml 240 ml 240 ml 240 ml 580 ml IV Total 562 ml 508 ml # Voids 2 4 1 3 # Bowel Movements 0 0 0 1 Result Diagram: 10/14/16 0631 10/14/16 0631 Objective Remarks GENERAL: This averagely built middle-aged white male was in no acute distress. HEENT: Head normocephalic. Pupils are reactive. Tongue is moist. Throat is injected. Nasal mucosae edematous. NECK: Supple. No bruits or thyroid enlargement. CHEST: Distant breath sounds with expiratory wheezes throughout both lung grider. Occasional crackles over the left lower chest and right lung base. HEART SOUNDS: Irregular S1 and S2 with no murmur. No S3 gallop. ABDOMEN: The abdomen is soft and protuberant without masses. No organomegaly or tenderness. The bowel sounds are active. EXTREMITIES: No lesions. No edema. NEUROLOGIC: Reflexes are 1+ with no gross motor deficits. SKIN: No lesions observed. Assessment and Plan Assessment and Plan IMPRESSION 1. Extensive left lower lobe pneumonia and hilar adenopathy. 2. Chronic obstructive pulmonary disease with emphysema and chronic bronchitis. 3. Nicotine dependency. 4. Rule out obstructive pneumonitis. Plan : 1. Continue antibiotics , Rocephin , And Zithromax 2. Nebs qid , duoneb. 3. O2 at 3 L. 4. Chest X daiana and PFTs. 5. Continue Symbicort Inhaler 2 puffs bid 6. Will consider Bronchoscopy when acute symptoms have improved. Salas Carrion MD Oct 14, 2016 19:27
[2016-10-15] VITALS (9 sets, daily range): BP systolic 96–117; BP diastolic 52–59; PULSE 82–99; RESP 18–20; TEMP 97.4–98.7; O2SAT 91–97
[2016-10-15] MEDS: methylPREDNISolone SOD SUCC 40 MG/1 ML VIAL IV PUSH SCH ×4 (00:44→21:05)
[2016-10-15] MEDS ORDERED: PHARMACY ORDERED LAB XX ONE (01:45)
[2016-10-15] MEDS: INSULIN ASPART SUPPLEMENTAL SCALE SQ SCH ×4 (05:29→22:04)
[2016-10-15] MEDS: RESP: ALBUTEROL 2.5 MG/IPRATROPIUM 0.5 MG NEB (SCH) NEB ×4 (08:00→20:48)
[2016-10-15 08:12] LABS: BASOPHIL % 0.2 % (0.0-2.0); HEMATOCRIT 32.9 % (39.0-51.0); HEMO FLAGS DIFF FINAL; LYMPH % 9.5 % (9.0-44.0); LYMPHOCYTE # 1.2 TH/MM3 (1.0-4.8); MEAN CELL VOLUME 87.8 FL (80.0-100.0); MEAN CORPUSCULAR HEMOGLOBIN 29.4 PG (27.0-34.0); MEAN CORPUSCULAR HGB CONC 33.5 % (32.0-36.0); MONO % 4.5 % (0.0-8.0); NEUT % 85.8 % (16.0-70.0); PLATELET COUNT 370 TH/MM3 (150-450); RED BLOOD COUNT 3.75 MIL/MM3 (4.50-5.90); RED CELL DISTRIBUTION WIDTH 16.7 % (11.6-17.2); WHITE BLOOD COUNT 12.9 TH/MM3 (4.0-11.0)
[2016-10-15] MEDS: guaiFENesin E.R. 600 MG TAB PO SCH ×2 (09:07→21:04)
[2016-10-15] MEDS: BUDESONIDE-FORMOTEROL 160/4.5 MCG INHALER INH SCH ×2 (09:07→21:05)
[2016-10-15] MEDS: SODIUM CHLORIDE 0.9% FLUSH 5 ML FLUSH FLUSH SCH ×2 (09:07→22:05)
--- NOTE | 2016-10-15 09:08 | RADRPT ---
EXAM DATE/TIME: 10/15/2016 06:20 [facility] COMPARISON: CHEST SINGLE AP, October 12, 2016, 22:50. INDICATIONS : Cough and fever. MEDICAL HISTORY : pneumonia SURGICAL HISTORY : None. ENCOUNTER: Initial ACUITY: 3 weeks PAIN SCORE: 4/10 LOCATION: Bilateral upper chest FINDINGS: Comparison is October 03. Extensive airspace disease in the left perihilar region and left base is si milar to prior study. Mild right basilar opacity. There is underlying bullous emphysema. No pneumotho rax. CONCLUSION: 1. Relatively stable consolidation of the left lateral since October 12. Bullous emphysema. Helio Miner MD on October 15, 2016 at 9:02 Board Certified Radiologist. This report was verified electronically.
--- NOTE | 2016-10-15 13:40 | HHI.PR ---
Subjective Remarks The patient said that he felt better. He said he talked to the cork mixer earlier and was planning for a procedure tomorrow. He has been ambulating. He has been having bowel movements. He still feels a little congested. Objective Vitals Vital Signs Date Time Temp Pulse Resp B/P Pulse Ox O2 Delivery O2 Flow Rate FiO2 10/15/16 12:22 98.0 96 18 106/58 93 10/15/16 09:05 97.5 83 20 104/59 93 10/15/16 08:03 96 Nasal Cannula 2.00 10/15/16 04:00 97.9 82 18 96/59 93 10/15/16 00:00 97.4 85 18 97/59 94 10/14/16 20:00 97.2 81 17 118/69 95 10/14/16 16:00 98.0 90 24 93/54 95 10/14/16 15:54 95 Nasal Cannula 4.00 I/O 10/14/16 10/14/16 10/14/16 10/15/16 10/15/16 10/15/16 07:00 15:00 23:00 07:00 15:00 23:00 Intake Total 748 ml 580 ml 600 ml 240 ml Balance 748 ml 580 ml 600 ml 240 ml Intake Oral 240 ml 580 ml 600 ml 240 ml IV Total 508 ml # Voids 3 6 2 # Bowel Movements 0 1 Result Diagram: 10/15/16 0646 10/14/16 0631 Imaging Last Impressions Chest X-Ray 10/15/16 0600 Signed Impressions: Service Date/Time: Saturday, October 15, 2016 06:20 - CONCLUSION: 1. Relatively stable consolidation of the left lateral since October 12. Bullous emphysema. Helio Miner MD CT Angiography 10/13/16 0042 Signed Impressions: Service Date/Time: Thursday, October 13, 2016 00:56 - CONCLUSION: 1. No pulmonary embolus. 2. Suspected cor pulmonale. 3. Severe emphysema. 4. Essentially complete consolidation of the non-emphysematous portion of the left upper lobe. Numerous fluid and air-filled cystic spaces, nonspecific. This may be inability to clear secretions from the bulla. Pulmonary abscesses not excludable. 5. Mediastinal and left hilar lymphadenopathy. Sean Andrew MD Lower Extremity Ultrasound 10/12/16 2441 Signed Impressions: Service Date/Time: Wednesday, October 12, 2016 22:55 - CONCLUSION: No DVT of either lower extremity. Sean Andrew MD Objective Remarks GENERAL: No acute distress. HEENT: PERRLA, EOMI. No scleral icterus or conjunctival pallor. No lid lag or facial droop. CARDIOVASCULAR: Regular rate and rhythm. No obvious murmurs to auscultation. No chest tenderness to palpation. RESPIRATORY: Improved wheezing. Breath sounds equal bilaterally. GASTROINTESTINAL: Abdomen soft, non-tender, nondistended. BS normal. MUSCULOSKELETAL: Extremities without clubbing, cyanosis, or edema. No obvious deformities. NEUROLOGICAL: Awake, alert and oriented x4. No focal neurologic deficits. Moving both upper and lower extremities spontaneously. PSYCH: Mood and affect appropriate. Medications and IVs Current Medications Medications (Trade) Dose Ordered Sig/[place] Route Start Time Stop Time Status Last Admin (SoluMEDROL INJ) 40 mg Q6HR IV PUSH 10/13/16 06:00 10/15/16 12:25 (Mucinex Er) 600 mg BID PO 10/13/16 09:00 10/15/16 09:07 (Symbicort 160-4.5 Inh) 2 puff Q12HR INH 10/13/16 09:00 10/15/16 09:07 (NS Flush) 2 ml UNSCH PRN FLUSH 10/13/16 02:00 (NS Flush) 2 ml BID FLUSH 10/13/16 09:00 10/15/16 09:07 (Zofran Inj) 4 mg Q6H PRN IVP 10/13/16 02:00 (Dulcolax Supp) 10 mg DAILY PRN [place] 10/13/16 02:00 (Tylenol) 650 mg Q6H PRN PO 10/13/16 02:00 ([place] 5-325 Mg) 1 tab Q4H PRN PO 10/13/16 02:00 Acetaminophen/ Hydrocodone Bitart 1 tab 1 tab Q4H PRN PO 10/13/16 02:00 Ceftriaxone Sodium 1000 mg/ Sodium Chloride 100 ml @ 200 mls/hr Q24H IV 10/14/16 15:00 10/14/16 13:55 (Zithromax Inj/ NS 250 ml Inj) 250 ml @ 250 mls/hr Q24H IV 10/14/16 15:00 10/14/16 15:09 (D50w (Vial) Inj) 25 ml UNSCH PRN IV 10/14/16 12:15 (Glucagon Inj) 1 mg UNSCH PRN OTHER 10/14/16 12:15 (Colace) 100 mg BID PO 10/15/16 21:00 UNV A/P Problem List: (1) COPD (chronic obstructive pulmonary disease) ICD Code: J44.9 Status: Acute (2) Hypoxia ICD Code: R09.02 Status: Acute (3) PNA (pneumonia) ICD Code: J18.9 Status: Acute (4) Tobacco abuse ICD Code: Z72.0 Status: Acute Assessment and Plan PNA/ COPD The pt has diffuse wheezing on exam. CXR w/ extensive infiltrate and scarring left mid to lower lung, CTA pulm negative for PE, likely cor pulmonale, severe emphysema, near complete consolidation LAURA. Pulmonology consult appreciated. Sputum culture with normal respiratory gianfranco. - Blood cultures no growth to date. - continue Rocephin/Zithro. - follow up with pulmonary. Bronch tentatively scheduled in AM. - Continue w/ Solu-Medrol, DuoNeb, Mucinex, Symbicort. Wean Solu-Medrol to twice a day. - incentive spirometry. - encourage ambulation. Tobacco Abuse Counselled. - Ativan/NicoDerm if needed. Hyperglycemia S/t steroid use. - monitor glucose and wean steroids as tolerated. DVT Prophylaxis: SCD/Teds. Discharge Planning Awaiting clinical improvement. Problem Qualifiers (1) PNA (pneumonia): Qualified Code: J18.9 - Pneumonia of left lung due to infectious organism, unspecified part of lung Willard Cosby DO Oct 15, 2016 13:40
[2016-10-15] MEDS: AZITHROMYCIN INJ 500 MG in SODIUM CHLOR 0.9% 250 ML INJ 250 ML IV SCH (14:51)
[2016-10-15] MEDS: cefTRIAXone INJ 1,000 MG in SODIUM CHLORIDE 0.9% INJ 100 ML IV SCH (14:51)
[2016-10-15] MEDS ORDERED: DEXT 5%-NACL 0.45% 1000 ML INJ 1,000 ML IV SCH (18:39)
--- NOTE | 2016-10-15 18:39 | HHI.PR ---
Subjective Remarks Doing better. Still has wheezing and a cough. CXR shows a left lung infiltrate Objective Vital Signs Date Time Temp Pulse Resp B/P Pulse Ox O2 Delivery O2 Flow Rate FiO2 10/15/16 16:30 93 10/15/16 16:00 98.4 99 18 101/52 93 10/15/16 16:00 98.4 99 18 101/52 91 10/15/16 12:22 98.0 96 18 106/58 93 10/15/16 09:05 97.5 83 20 104/59 93 10/15/16 08:03 96 Nasal Cannula 2.00 10/15/16 04:00 97.9 82 18 96/59 93 10/15/16 00:00 97.4 85 18 97/59 94 10/14/16 20:00 97.2 81 17 118/69 95 I/O 10/14/16 10/14/16 10/14/16 10/15/16 10/15/16 10/15/16 07:00 15:00 23:00 07:00 15:00 23:00 Intake Total 748 ml 580 ml 600 ml 240 ml 1200 ml Balance 748 ml 580 ml 600 ml 240 ml 1200 ml Intake Oral 240 ml 580 ml 600 ml 240 ml 1200 ml IV Total 508 ml # Voids 3 6 2 4 # Bowel Movements 0 1 Result Diagram: 10/15/16 0646 10/14/16 0631 Objective Remarks GENERAL: This averagely built middle-aged white male was in no acute distress. HEENT: Head normocephalic. Pupils are reactive. Tongue is moist. Throat is injected. NECK: Supple. No bruits or thyroid enlargement. CHEST: Distant breath sounds with expiratory wheezes over both lung grider. Occasional crackles over the left lower chest . HEART SOUNDS: Irregular S1 and S2 with no murmur. No S3 gallop. ABDOMEN: The abdomen is soft and protuberant without masses. No organomegaly or tenderness. The bowel sounds are active. EXTREMITIES: No lesions. No edema. NEUROLOGIC: Reflexes are 1+ with no gross motor deficits. SKIN: No lesions observed. Assessment and Plan Assessment and Plan IMPRESSION 1. Extensive left lower lobe pneumonia and hilar adenopathy. 2. Chronic obstructive pulmonary disease with emphysema and chronic bronchitis. 3. Nicotine dependency. 4. Rule out obstructive pneumonitis. Plan : 1. Continue antibiotics , Rocephin , And Po Zithromax 2. Nebs qid , duoneb. 3. O2 at 3 L. 4. Will schedule bronchoscopy to Evaluate left LL Bronchus 5. Continue Symbicort Inhaler 160/4.5 Mcg 2 puffs bid 6. CBC , Coag in am Salas Carrion MD Oct 15, 2016 18:39
[2016-10-15 19:44] LABS: APTT (PATIENT) 23.9 SEC (24.3-30.1); INTERNATIONAL NORMALIZED RATIO 1.1 RATIO; PROTHROMBIN TIME - PATIENT 11.7 SEC (9.8-11.6)
[2016-10-15] MEDS: DOCUSATE SODIUM 100 MG CAP PO SCH (21:00)
[2016-10-16] VITALS (7 sets, daily range): BP systolic 106–128; BP diastolic 60–83; PULSE 69–102; RESP 20–24; TEMP 97.7–98.4; O2SAT 92–96
[2016-10-16] MEDS: INSULIN ASPART SUPPLEMENTAL SCALE SQ SCH ×4 (05:50→21:38)
[2016-10-16] MEDS: methylPREDNISolone SOD SUCC 40 MG/1 ML VIAL IV PUSH SCH ×2 (08:05→21:38)
[2016-10-16] MEDS: BUDESONIDE-FORMOTEROL 160/4.5 MCG INHALER INH SCH ×2 (08:05→21:00)
[2016-10-16] MEDS: SODIUM CHLORIDE 0.9% FLUSH 5 ML FLUSH FLUSH SCH ×2 (08:06→21:39)
[2016-10-16] MEDS: RESP: ALBUTEROL 2.5 MG/IPRATROPIUM 0.5 MG NEB (SCH) NEB ×4 (08:16→20:19)
[2016-10-16] MEDS: DOCUSATE SODIUM 100 MG CAP PO SCH ×2 (09:00→21:00)
[2016-10-16] MEDS ORDERED: SODIUM CHLORIDE 0.9% 20 ML VIAL ONE (10:35)
[2016-10-16] MEDS ORDERED: LIDOCAINE HCL 2% 50 ML VIAL ONE (10:36)
[2016-10-16] MEDS ORDERED: MIDAZOLAM HCL 2 MG/2 ML VIAL ONE (11:00)
[2016-10-16] MEDS ORDERED: EPINEPHrine HCL (1:1000) 1 MG/ML VIAL E-TRACHE ONE (11:14)
[2016-10-16] MEDS ORDERED: methylPREDNISolone SOD SUCC 125 MG/2 ML VIAL ONE (11:25)
[2016-10-16] MEDS ORDERED: PROPOFOL 200 MG/20 ML AMP IV ONE (12:00)
[2016-10-16] MEDS ORDERED: DO NOT ADM ANY ANTICOAGULANT DRUGS XX PRN (12:00)
[2016-10-16] MEDS ORDERED: RESP: ALBUTEROL 2.5 MG/3 ML NEB (PRN) NEB (12:15)
[2016-10-16] MEDS ORDERED: *RESP: ALBUTEROL 2.5 MG/3 ML NEB (PRN) PERIprocedural Use ONLY NEB ONE (12:19)
--- NOTE | 2016-10-16 12:54 | RADRPT ---
EXAM DATE/TIME: 10/16/2016 12:26 [facility] COMPARISON: CHEST SINGLE AP, October 12, 2016, 22:50. CHEST SINGLE AP, December 10, 2013, 8:39. CHEST SINGLE AP, F ebruary 2016, 6:20. INDICATIONS : Evaluate for pneumothorax. MEDICAL HISTORY : Chronic obstructive pulmonary disease. SURGICAL HISTORY : None. ENCOUNTER: Subsequent ACUITY: 3 days PAIN SCORE: 0/10 LOCATION: Bilateral chest FINDINGS: The cardiac silhouette is enlarged in transverse diameter. The right lung is free of acute parenchyma l opacity. There is severe emphysematous changes on the left with patchy alveolar disease in the left base consisted with pneumonia. There has been no significant change when compared to the prior exam. CONCLUSION: 1. Severe emphysema without pneumothorax on the left. 2. Left basilar pneumonia. There has been no significant change when compared to the prior exam. Quentin Clayton MD on October 16, 2016 at 12:52 Board Certified Radiologist. This report was verified electronically.
--- NOTE | 2016-10-16 13:50 | HHI.PR ---
Subjective Remarks The patient was resting in bed comfortably. He had a bronchoscopy earlier and was feeling almost at baseline. He said he is not on home oxygen. He is hopeful to go home either later today or tomorrow. If family at the bedside and her questions were answered. Discussed with pulmonology and nursing. Objective Vitals Vital Signs Date Time Temp Pulse Resp B/P Pulse Ox O2 Delivery O2 Flow Rate FiO2 10/16/16 13:00 98 17 116/74 92 Nasal Cannula 4 10/16/16 12:45 99 15 117/65 93 Nasal Cannula 4 10/16/16 12:30 94 23 122/77 91 Nasal Cannula 4 10/16/16 12:18 97.9 95 22 129/76 88 Nasal Cannula 4 10/16/16 08:18 93 Nasal Cannula 2.00 10/16/16 08:00 97.7 79 20 128/83 92 10/16/16 04:00 98.4 79 20 114/69 94 10/16/16 00:05 97.9 86 24 124/60 96 10/15/16 20:48 93 Nasal Cannula 2.00 10/15/16 20:18 98.7 97 20 117/59 97 10/15/16 16:30 93 10/15/16 16:00 98.4 99 18 101/52 93 10/15/16 16:00 98.4 99 18 101/52 91 I/O 10/15/16 10/15/16 10/15/16 10/16/16 10/16/16 10/16/16 07:00 15:00 23:00 07:00 15:00 23:00 Intake Total 240 ml 1200 ml 360 ml 225 ml Balance 240 ml 1200 ml 360 ml 225 ml Intake Oral 240 ml 1200 ml 360 ml IV Total 25 ml Other 200 ml # Voids 2 4 6 Result Diagram: 10/15/16 0646 10/14/16 0631 Imaging Last Impressions Chest X-Ray 10/16/16 0000 Signed Impressions: Service Date/Time: October 12:26 - CONCLUSION: 1. Severe emphysema without pneumothorax on the left. 2. Left basilar pneumonia. There has been no significant change when compared to the prior exam. Quentin Clayton MD CT Angiography 10/13/16 0042 Signed Impressions: Service Date/Time: Thursday, October 13, 2016 00:56 - CONCLUSION: 1. No pulmonary embolus. 2. Suspected cor pulmonale. 3. Severe emphysema. 4. Essentially complete consolidation of the non-emphysematous portion of the left upper lobe. Numerous fluid and air-filled cystic spaces, nonspecific. This may be inability to clear secretions from the bulla. Pulmonary abscesses not excludable. 5. Mediastinal and left hilar lymphadenopathy. Sean Andrew MD Lower Extremity Ultrasound 10/12/16 2241 Signed Impressions: Service Date/Time: Wednesday, October 12, 2016 22:55 - CONCLUSION: No DVT of either lower extremity. Sean Andrew MD Objective Remarks GENERAL: No acute distress. HEENT: PERRLA, EOMI. No scleral icterus or conjunctival pallor. No lid lag or facial droop. CARDIOVASCULAR: Regular rate and rhythm. No obvious murmurs to auscultation. No chest tenderness to palpation. RESPIRATORY: Diffuse wheezing. Breath sounds equal bilaterally. GASTROINTESTINAL: Abdomen soft, non-tender, nondistended. BS normal. MUSCULOSKELETAL: Extremities without clubbing, cyanosis, or edema. No obvious deformities. NEUROLOGICAL: Awake, alert and oriented x4. No focal neurologic deficits. Moving both upper and lower extremities spontaneously. PSYCH: Mood and affect appropriate. Procedures Bronchoscopy 10/16/16. Medications and IVs Current Medications Medications (Trade) Dose Ordered Sig/[place] Route Start Time Stop Time Status Last Admin (Mucinex Er) 600 mg BID PO 10/13/16 09:00 10/15/16 21:04 (Symbicort 160-4.5 Inh) 2 puff Q12HR INH 10/13/16 09:00 10/16/16 08:05 (NS Flush) 2 ml UNSCH PRN FLUSH 10/13/16 02:00 (NS Flush) 2 ml BID FLUSH 10/13/16 09:00 10/16/16 08:06 (Zofran Inj) 4 mg Q6H PRN IVP 10/13/16 02:00 (Dulcolax Supp) 10 mg DAILY PRN [place] 10/13/16 02:00 (Tylenol) 650 mg Q6H PRN PO 10/13/16 02:00 ([place] 5-325 Mg) 1 tab Q4H PRN PO 10/13/16 02:00 Acetaminophen/ Hydrocodone Bitart 1 tab 1 tab Q4H PRN PO 10/13/16 02:00 Ceftriaxone Sodium 1000 mg/ Sodium Chloride 100 ml @ 200 mls/hr Q24H IV 10/14/16 15:00 10/15/16 14:51 (Zithromax Inj/ NS 250 ml Inj) 250 ml @ 250 mls/hr Q24H IV 10/14/16 15:00 10/15/16 14:51 (D50w (Vial) Inj) 25 ml UNSCH PRN IV 10/14/16 12:15 (Glucagon Inj) 1 mg UNSCH PRN OTHER 10/14/16 12:15 (Colace) 100 mg BID PO 10/15/16 21:00 Methylprednisolone Sodium Succinate 40 mg 40 mg BID IV PUSH 10/15/16 21:00 10/16/16 08:05 (D5W-09/15 NS 1000 ml Inj) 1,000 ml @ 0 mls/hr Q0M IV 10/15/16 18:39 Miscellaneous Information ALL NURSING DEPARTME... UNSCH PRN XX 10/16/16 12:00 10/17/16 11:59 A/P Problem List: (1) COPD (chronic obstructive pulmonary disease) ICD Code: J44.9 Status: Acute (2) Hypoxia ICD Code: R09.02 Status: Acute (3) PNA (pneumonia) ICD Code: J18.9 Status: Acute (4) Tobacco abuse ICD Code: Z72.0 Status: Acute Assessment and Plan PNA/ COPD The pt has diffuse wheezing on exam. CXR w/ extensive infiltrate and scarring left mid to lower lung, CTA pulm negative for PE, likely cor pulmonale, severe emphysema, near complete consolidation LAURA. Pulmonology consult appreciated. Sputum culture with normal respiratory gianfranco. Bronchoscopy performed 10/16/16. Inflammation seen but no mass per pulmonology. - Blood cultures no growth to date. - follow bronch cultures. - continue Rocephin/Zithro. - follow up with pulmonary as an outpt. - Continue w/ Solu-Medrol, DuoNeb, Mucinex, Symbicort. Wean Solu-Medrol to twice a day. - incentive spirometry. - encourage ambulation. - oxygen walk test requested. Tobacco Abuse Counselled. - Ativan/NicoDerm if needed. Hyperglycemia S/t steroid use. - monitor glucose and wean steroids as tolerated. DVT Prophylaxis: SCD/Teds. Discharge Planning Anticipate d/c home in AM. Problem Qualifiers (1) PNA (pneumonia): Qualified Code: J18.9 - Pneumonia of left lung due to infectious organism, unspecified part of lung Willard Cosby DO Oct 16, 2016 13:50
[2016-10-16] MEDS: guaiFENesin E.R. 600 MG TAB PO SCH ×2 (15:28→21:38)
[2016-10-16] MEDS: cefTRIAXone INJ 1,000 MG in SODIUM CHLORIDE 0.9% INJ 100 ML IV SCH (15:29)
[2016-10-16] MEDS: AZITHROMYCIN INJ 500 MG in SODIUM CHLOR 0.9% 250 ML INJ 250 ML IV SCH (16:19)
[2016-10-17] VITALS (7 sets, daily range): BP systolic 106–129; BP diastolic 56–75; PULSE 74–100; RESP 18–20; TEMP 97.2–98; O2SAT 92–94
[2016-10-17] MEDS: INSULIN ASPART SUPPLEMENTAL SCALE SQ SCH ×4 (06:22→21:38)
[2016-10-17] MEDS: DOCUSATE SODIUM 100 MG CAP PO SCH ×2 (08:32→21:00)
[2016-10-17] MEDS: guaiFENesin E.R. 600 MG TAB PO SCH ×2 (08:32→21:36)
[2016-10-17] MEDS: methylPREDNISolone SOD SUCC 40 MG/1 ML VIAL IV PUSH SCH ×2 (08:32→21:37)
[2016-10-17] MEDS: BUDESONIDE-FORMOTEROL 160/4.5 MCG INHALER INH SCH ×2 (08:32→21:00)
[2016-10-17] MEDS: SODIUM CHLORIDE 0.9% FLUSH 5 ML FLUSH FLUSH SCH ×2 (08:33→21:37)
[2016-10-17] MEDS ORDERED: CEFT500T3 PO (10:15)
[2016-10-17] MEDS ORDERED: AZIT500T2 PO (10:15)
[2016-10-17] MEDS ORDERED: SYMB160A INH (10:15)
[2016-10-17] MEDS ORDERED: PRED10PA2 PO (10:15)
[2016-10-17] MEDS ORDERED: OXYGENTANK NAS.CANULA (10:15)
--- NOTE | 2016-10-17 11:17 | HHI.PR ---
Subjective Remarks The patient said that he felt okay. He said his lungs were bothering him and his voice was hoarse from the bronchoscopy. He says he gets short of breath with walking. He says he feels good enough to go home. Discussed with case management. Objective Vitals Vital Signs Date Time Temp Pulse Resp B/P Pulse Ox O2 Delivery O2 Flow Rate FiO2 10/17/16 08:04 94 Nasal Cannula 3.00 10/17/16 08:00 97.2 74 20 106/56 93 10/17/16 04:00 97.4 75 20 112/61 94 10/17/16 00:00 98.0 87 20 118/61 94 10/16/16 20:21 93 Nasal Cannula 3.00 10/16/16 20:00 97.8 102 20 115/65 93 10/16/16 16:00 98.0 83 20 106/60 93 10/16/16 13:00 98 17 116/74 92 Nasal Cannula 4 10/16/16 12:45 99 15 117/65 93 Nasal Cannula 4 10/16/16 12:30 94 23 122/77 91 Nasal Cannula 4 10/16/16 12:18 97.9 95 22 129/76 88 Nasal Cannula 4 I/O 10/16/16 10/16/16 10/16/16 10/17/16 10/17/16 10/17/16 07:00 15:00 23:00 07:00 15:00 23:00 Intake Total 360 ml 225 ml 682 ml 280 ml Balance 360 ml 225 ml 682 ml 280 ml Intake Oral 360 ml 680 ml 280 ml IV Total 25 ml 2 ml Other 200 ml # Voids 6 2 # Bowel Movements 0 Result Diagram: 10/15/16 0646 10/14/16 0631 Imaging Last Impressions Chest X-Ray 10/16/16 0000 Signed Impressions: Service Date/Time: October 12:26 - CONCLUSION: 1. Severe emphysema without pneumothorax on the left. 2. Left basilar pneumonia. There has been no significant change when compared to the prior exam. Quentin Clayton MD CT Angiography 10/13/16 0042 Signed Impressions: Service Date/Time: Thursday, October 13, 2016 00:56 - CONCLUSION: 1. No pulmonary embolus. 2. Suspected cor pulmonale. 3. Severe emphysema. 4. Essentially complete consolidation of the non-emphysematous portion of the left upper lobe. Numerous fluid and air-filled cystic spaces, nonspecific. This may be inability to clear secretions from the bulla. Pulmonary abscesses not excludable. 5. Mediastinal and left hilar lymphadenopathy. Sean Andrew MD Lower Extremity Ultrasound 10/12/16 5608 Signed Impressions: Service Date/Time: Wednesday, October 12, 2016 22:55 - CONCLUSION: No DVT of either lower extremity. Sean Andrew MD Objective Remarks GENERAL: No acute distress. HEENT: PERRLA, EOMI. No scleral icterus or conjunctival pallor. No lid lag or facial droop. CARDIOVASCULAR: Regular rate and rhythm. No obvious murmurs to auscultation. No chest tenderness to palpation. RESPIRATORY: Diffuse wheezing, improved. Breath sounds equal bilaterally. GASTROINTESTINAL: Abdomen soft, non-tender, nondistended. BS normal. MUSCULOSKELETAL: Extremities without clubbing, cyanosis, or edema. No obvious deformities. NEUROLOGICAL: Awake, alert and oriented x4. No focal neurologic deficits. Moving both upper and lower extremities spontaneously. PSYCH: Mood and affect appropriate. Procedures Bronchoscopy 10/16/16. Medications and IVs Current Medications Medications (Trade) Dose Ordered Sig/[place] Route Start Time Stop Time Status Last Admin (Mucinex Er) 600 mg BID PO 10/13/16 09:00 10/17/16 08:32 (Symbicort 160-4.5 Inh) 2 puff Q12HR INH 10/13/16 09:00 10/17/16 08:32 (NS Flush) 2 ml UNSCH PRN FLUSH 10/13/16 02:00 (NS Flush) 2 ml BID FLUSH 10/13/16 09:00 10/17/16 08:33 (Zofran Inj) 4 mg Q6H PRN IVP 10/13/16 02:00 (Dulcolax Supp) 10 mg DAILY PRN [place] 10/13/16 02:00 (Tylenol) 650 mg Q6H PRN PO 10/13/16 02:00 ([place] 5-325 Mg) 1 tab Q4H PRN PO 10/13/16 02:00 Acetaminophen/ Hydrocodone Bitart 1 tab 1 tab Q4H PRN PO 10/13/16 02:00 Ceftriaxone Sodium 1000 mg/ Sodium Chloride 100 ml @ 200 mls/hr Q24H IV 10/14/16 15:00 10/16/16 15:29 (Zithromax Inj/ NS 250 ml Inj) 250 ml @ 250 mls/hr Q24H IV 10/14/16 15:00 10/16/16 16:19 (D50w (Vial) Inj) 25 ml UNSCH PRN IV 10/14/16 12:15 (Glucagon Inj) 1 mg UNSCH PRN OTHER 10/14/16 12:15 (Colace) 100 mg BID PO 10/15/16 21:00 Methylprednisolone Sodium Succinate 40 mg 40 mg BID IV PUSH 10/15/16 21:00 10/17/16 08:32 (D5W-09/15 NS 1000 ml Inj) 1,000 ml @ 0 mls/hr Q0M IV 10/15/16 18:39 Miscellaneous Information ALL NURSING DEPARTME... UNSCH PRN XX 10/16/16 12:00 10/17/16 11:59 A/P Problem List: (1) COPD (chronic obstructive pulmonary disease) ICD Code: J44.9 Status: Acute (2) Hypoxia ICD Code: R09.02 Status: Acute (3) PNA (pneumonia) ICD Code: J18.9 Status: Acute (4) Tobacco abuse ICD Code: Z72.0 Status: Acute Assessment and Plan PNA/ COPD The pt has diffuse wheezing on exam. CXR w/ extensive infiltrate and scarring left mid to lower lung, CTA pulm negative for PE, likely cor pulmonale, severe emphysema, near complete consolidation LAURA. Pulmonology consult appreciated. Sputum culture with normal respiratory gianfranco. Bronchoscopy performed 10/16/16. Inflammation seen but no mass per pulmonology. - Blood cultures no growth to date. - follow bronch cultures. - continue Rocephin/Zithro. - follow up with pulmonary as an outpt. - Continue w/ Solu-Medrol, DuoNeb, Mucinex, Symbicort. Wean Solu-Medrol to twice a day. Prednisone taper upon discharge. - incentive spirometry. - encourage ambulation. - oxygen walk test requested. Will likely need home oxygen but he cannot afford it at this time. Tobacco Abuse Counselled. - Ativan/NicoDerm if needed. Hyperglycemia S/t steroid use. - monitor glucose and wean steroids as tolerated. DVT Prophylaxis: SCD/Teds. Discharge Planning Anticipate d/c home when he passes walk test or home oxygen can be arranged. Problem Qualifiers (1) PNA (pneumonia): Qualified Code: J18.9 - Pneumonia of left lung due to infectious organism, unspecified part of lung Willard Cosby DO Oct 17, 2016 11:17
[2016-10-17] MEDS: AZITHROMYCIN INJ 500 MG in SODIUM CHLOR 0.9% 250 ML INJ 250 ML IV SCH (15:53)
[2016-10-17] MEDS: cefTRIAXone INJ 1,000 MG in SODIUM CHLORIDE 0.9% INJ 100 ML IV SCH (15:53)
[2016-10-18] VITALS (7 sets, daily range): BP systolic 111–123; BP diastolic 63–77; PULSE 74–96; RESP 17–22; TEMP 97.2–98.2; O2SAT 90–98
[2016-10-18] MEDS: INSULIN ASPART SUPPLEMENTAL SCALE SQ SCH ×4 (05:41→21:14)
[2016-10-18] MEDS: DOCUSATE SODIUM 100 MG CAP PO SCH ×2 (09:00→21:13)
[2016-10-18] MEDS: guaiFENesin E.R. 600 MG TAB PO SCH ×2 (09:27→21:13)
[2016-10-18] MEDS: methylPREDNISolone SOD SUCC 40 MG/1 ML VIAL IV PUSH SCH ×2 (09:27→21:13)
[2016-10-18] MEDS: SODIUM CHLORIDE 0.9% FLUSH 5 ML FLUSH FLUSH SCH ×2 (09:27→21:12)
[2016-10-18] MEDS: BUDESONIDE-FORMOTEROL 160/4.5 MCG INHALER INH SCH ×2 (09:27→21:12)
[2016-10-18] MEDS: cefTRIAXone INJ 1,000 MG in SODIUM CHLORIDE 0.9% INJ 100 ML IV SCH (13:58)
--- NOTE | 2016-10-18 14:31 | HHI.PR ---
Subjective Remarks The patient was sitting up in bed. He was wondering when he can go home. He said he still has some lung pain when he coughs. He has been ambulating to the bathroom. Nursing and family at the bedside. Objective Vitals Vital Signs Date Time Temp Pulse Resp B/P Pulse Ox O2 Delivery O2 Flow Rate FiO2 10/18/16 13:57 92 Nasal Cannula 3.00 10/18/16 12:00 98.2 91 22 111/68 91 10/18/16 08:10 98.0 74 22 123/77 90 10/18/16 04:00 97.2 87 17 121/63 96 10/18/16 00:00 98.0 87 17 121/63 93 10/17/16 20:00 97.6 81 18 129/75 92 10/17/16 16:00 97.9 100 20 118/60 93 I/O 10/17/16 10/17/16 10/17/16 10/18/16 10/18/16 10/18/16 07:00 15:00 23:00 07:00 15:00 23:00 Intake Total 280 ml 960 ml 482 ml 480 ml Balance 280 ml 960 ml 482 ml 480 ml Intake Oral 280 ml 960 ml 480 ml 480 ml IV Total 2 ml # Voids 2 4 2 2 # Bowel Movements 0 1 0 1 Result Diagram: 10/15/16 0646 10/14/16 0631 Imaging Last Impressions Chest X-Ray 10/16/16 0000 Signed Impressions: Service Date/Time: October 12:26 - CONCLUSION: 1. Severe emphysema without pneumothorax on the left. 2. Left basilar pneumonia. There has been no significant change when compared to the prior exam. Quentin Clayton MD CT Angiography 10/13/16 0042 Signed Impressions: Service Date/Time: Thursday, October 13, 2016 00:56 - CONCLUSION: 1. No pulmonary embolus. 2. Suspected cor pulmonale. 3. Severe emphysema. 4. Essentially complete consolidation of the non-emphysematous portion of the left upper lobe. Numerous fluid and air-filled cystic spaces, nonspecific. This may be inability to clear secretions from the bulla. Pulmonary abscesses not excludable. 5. Mediastinal and left hilar lymphadenopathy. Sean Andrew MD Lower Extremity Ultrasound 10/12/16 2241 Signed Impressions: Service Date/Time: Wednesday, October 12, 2016 22:55 - CONCLUSION: No DVT of either lower extremity. eSan Andrew MD Objective Remarks GENERAL: No acute distress. HEENT: PERRLA, EOMI. No scleral icterus or conjunctival pallor. No lid lag or facial droop. CARDIOVASCULAR: Regular rate and rhythm. No obvious murmurs to auscultation. No chest tenderness to palpation. RESPIRATORY: Wheezing markedly improved. Breath sounds equal bilaterally. GASTROINTESTINAL: Abdomen soft, non-tender, nondistended. BS normal. MUSCULOSKELETAL: Extremities without clubbing, cyanosis, or edema. No obvious deformities. NEUROLOGICAL: Awake, alert and oriented x4. No focal neurologic deficits. Moving both upper and lower extremities spontaneously. PSYCH: Mood and affect appropriate. Procedures Bronchoscopy 10/16/16. Medications and IVs Current Medications Medications (Trade) Dose Ordered Sig/[place] Route Start Time Stop Time Status Last Admin (Mucinex Er) 600 mg BID PO 10/13/16 09:00 10/18/16 09:27 (Symbicort 160-4.5 Inh) 2 puff Q12HR INH 10/13/16 09:00 10/18/16 09:27 (NS Flush) 2 ml UNSCH PRN FLUSH 10/13/16 02:00 (NS Flush) 2 ml BID FLUSH 10/13/16 09:00 10/18/16 09:27 (Zofran Inj) 4 mg Q6H PRN IVP 10/13/16 02:00 (Dulcolax Supp) 10 mg DAILY PRN [place] 10/13/16 02:00 (Tylenol) 650 mg Q6H PRN PO 10/13/16 02:00 ([place] 5-325 Mg) 1 tab Q4H PRN PO 10/13/16 02:00 Acetaminophen/ Hydrocodone Bitart 1 tab 1 tab Q4H PRN PO 10/13/16 02:00 Ceftriaxone Sodium 1000 mg/ Sodium Chloride 100 ml @ 200 mls/hr Q24H IV 10/14/16 15:00 10/18/16 13:58 (Zithromax Inj/ NS 250 ml Inj) 250 ml @ 250 mls/hr Q24H IV 10/14/16 15:00 10/17/16 15:53 (D50w (Vial) Inj) 25 ml UNSCH PRN IV 10/14/16 12:15 (Glucagon Inj) 1 mg UNSCH PRN OTHER 10/14/16 12:15 (Colace) 100 mg BID PO 10/15/16 21:00 Methylprednisolone Sodium Succinate 40 mg 40 mg BID IV PUSH 10/15/16 21:00 10/18/16 09:27 (D5W-09/15 NS 1000 ml Inj) 1,000 ml @ 0 mls/hr Q0M IV 10/15/16 18:39 A/P Problem List: (1) COPD (chronic obstructive pulmonary disease) ICD Code: J44.9 Status: Acute (2) Hypoxia ICD Code: R09.02 Status: Acute (3) PNA (pneumonia) ICD Code: J18.9 Status: Acute (4) Tobacco abuse ICD Code: Z72.0 Status: Acute Assessment and Plan PNA/ COPD The pt has diffuse wheezing on exam. CXR w/ extensive infiltrate and scarring left mid to lower lung, CTA pulm negative for PE, likely cor pulmonale, severe emphysema, near complete consolidation LAURA. Pulmonology consult appreciated. Sputum culture with normal respiratory gianfranco. Bronchoscopy performed 10/16/16. Inflammation seen but no mass per pulmonology. Pt almost feels at baseline. - Blood cultures no growth to date. - follow bronch cultures. - continue Rocephin/Zithro. - follow up with pulmonary as an outpt. - Continue w/ Solu-Medrol, DuoNeb, Mucinex, Symbicort. Wean Solu-Medrol to twice a day. Prednisone taper upon discharge. - incentive spirometry. - encourage ambulation. - failed oxygen walk test requested, which he cannot afford at this time. Will repeat 10/18. Tobacco Abuse Counselled. - Ativan/NicoDerm if needed. Hyperglycemia S/t steroid use. - monitor glucose and wean steroids as tolerated. DVT Prophylaxis: SCD/Teds. Discharge Planning Anticipate d/c home when he passes walk test or when home oxygen can be arranged. Problem Qualifiers (1) PNA (pneumonia): Qualified Code: J18.9 - Pneumonia of left lung due to infectious organism, unspecified part of lung Willard Cosby DO Oct 18, 2016 14:31
[2016-10-18] MEDS: AZITHROMYCIN INJ 500 MG in SODIUM CHLOR 0.9% 250 ML INJ 250 ML IV SCH (15:16)
[2016-10-19] VITALS (7 sets, daily range): BP systolic 106–122; BP diastolic 58–66; PULSE 79–93; RESP 18–20; TEMP 97.5–98.3; O2SAT 93–94
[2016-10-19] MEDS: INSULIN ASPART SUPPLEMENTAL SCALE SQ SCH ×4 (06:01→20:05)
--- NOTE | 2016-10-19 06:54 | MP ---
cc: BRONSON CARRION DATE OF SURGERY: 10/16/2016 PROCEDURE: Fiberoptic bronchoscopy with brushings and washings, biopsy. PREOPERATIVE DIAGNOSIS: Persistent left lung pneumonia. POSTOPERATIVE DIAGNOSIS: Persistent left lung pneumonia. SURGEON: Dr. Adrian Carrion. ANESTHESIA: General. PROCEDURE AND FINDINGS: The patient was intubated under general anesthesia following which the Olympus IT-180 bronchoscope was used to visualize the bronchi. The scope was advanced via the endotracheal tube into the trachea. The trachea and sera appeared normal. The scope was then advanced to the right main stem and right upper lobe segmental bronchi. These bronchi demonstrated mild endobronchitis with thick mucoid secretions. These were suctioned out. Saline washings were done. Next the right middle and lower lobe segmental bronchi were visualized which demonstrated mucoid secretions with moderate endobronchitis. No endobronchial lesions noted. Saline washings and lavage were done. The scope was then advanced to the left main stem and left upper lobe segmental bronchi. The left upper lobe segmental bronchi demonstrated mucosal ridging and edema with slight narrowing of the bronchus and thick mucoid secretions. These were suctioned out. The underlying bronchi demonstrated moderate endobronchitis but no endobronchial masses seen. Brushings were done for cytology and micro biopsies done as well, and washings. The scope was also advanced in the left lower lobe. Segmental bronchi demonstrated mild endobronchitis with mucoid secretions. These were suctioned out. No endobronchial lesions were seen. Saline washings and lavage were done. The procedure we then terminated. The patient tolerated the procedure well. MD PHILIPPE Dooley/MIGUEL ANGEL /12:11 PM /6:43 AM
[2016-10-19] MEDS: DOCUSATE SODIUM 100 MG CAP PO SCH ×2 (09:00→20:04)
[2016-10-19] MEDS: guaiFENesin E.R. 600 MG TAB PO SCH ×2 (09:18→20:04)
[2016-10-19] MEDS: methylPREDNISolone SOD SUCC 40 MG/1 ML VIAL IV PUSH SCH ×2 (09:18→20:04)
[2016-10-19] MEDS: SODIUM CHLORIDE 0.9% FLUSH 5 ML FLUSH FLUSH SCH ×2 (09:18→20:04)
[2016-10-19] MEDS: BUDESONIDE-FORMOTEROL 160/4.5 MCG INHALER INH SCH ×2 (09:18→20:03)
--- NOTE | 2016-10-19 11:25 | HHI.PR ---
Subjective Remarks The patient said that he felt like his breathing was almost at baseline. He said he knows he did not pass the walk test today. He is trying to make alternative arrangements for oxygen. No acute complaints at this time. Having bowel movements. Objective Vitals Vital Signs Date Time Temp Pulse Resp B/P Pulse Ox O2 Delivery O2 Flow Rate FiO2 10/19/16 11:02 3.00 10/19/16 11:02 93 Nasal Cannula 3.00 10/19/16 08:00 97.6 79 20 122/65 94 10/19/16 04:00 98.2 85 18 115/63 94 10/19/16 00:00 98.3 80 18 116/61 94 10/18/16 21:03 Nasal Cannula 3.00 10/18/16 20:00 98.0 96 18 113/69 94 10/18/16 16:00 98.0 80 20 117/69 98 10/18/16 13:57 92 Nasal Cannula 3.00 10/18/16 12:00 98.2 91 22 111/68 91 I/O 10/18/16 10/18/16 10/18/16 10/19/16 10/19/16 10/19/16 07:00 15:00 23:00 07:00 15:00 23:00 Intake Total 480 ml 960 ml 240 ml 120 ml Balance 480 ml 960 ml 240 ml 120 ml Intake Oral 480 ml 960 ml 240 ml 120 ml # Voids 2 8 2 4 # Bowel Movements 1 1 Result Diagram: 10/15/16 0646 Imaging Last Impressions Chest X-Ray 10/16/16 0000 Signed Impressions: Service Date/Time: October 12:26 - CONCLUSION: 1. Severe emphysema without pneumothorax on the left. 2. Left basilar pneumonia. There has been no significant change when compared to the prior exam. Quentin Clayton MD CT Angiography 10/13/16 0042 Signed Impressions: Service Date/Time: Thursday, October 13, 2016 00:56 - CONCLUSION: 1. No pulmonary embolus. 2. Suspected cor pulmonale. 3. Severe emphysema. 4. Essentially complete consolidation of the non-emphysematous portion of the left upper lobe. Numerous fluid and air-filled cystic spaces, nonspecific. This may be inability to clear secretions from the bulla. Pulmonary abscesses not excludable. 5. Mediastinal and left hilar lymphadenopathy. Sean Andrew MD Lower Extremity Ultrasound 10/12/16 7897 Signed Impressions: Service Date/Time: Wednesday, October 12, 2016 22:55 - CONCLUSION: No DVT of either lower extremity. Sean Andrew MD Objective Remarks GENERAL: No acute distress. HEENT: PERRLA, EOMI. No scleral icterus or conjunctival pallor. No lid lag or facial droop. CARDIOVASCULAR: Regular rate and rhythm. No obvious murmurs to auscultation. No chest tenderness to palpation. RESPIRATORY: Wheezing markedly improved. Breath sounds diminished. GASTROINTESTINAL: Abdomen soft, non-tender, nondistended. BS normal. MUSCULOSKELETAL: Extremities without clubbing, cyanosis, or edema. No obvious deformities. NEUROLOGICAL: Awake, alert and oriented x4. No focal neurologic deficits. Moving both upper and lower extremities spontaneously. PSYCH: Mood and affect appropriate. Procedures Bronchoscopy 10/16/16. Medications and IVs Current Medications Medications (Trade) Dose Ordered Sig/[place] Route Start Time Stop Time Status Last Admin (Mucinex Er) 600 mg BID PO 10/13/16 09:00 10/19/16 09:18 (Symbicort 160-4.5 Inh) 2 puff Q12HR INH 10/13/16 09:00 10/19/16 09:18 (NS Flush) 2 ml UNSCH PRN FLUSH 10/13/16 02:00 (NS Flush) 2 ml BID FLUSH 10/13/16 09:00 10/19/16 09:18 (Zofran Inj) 4 mg Q6H PRN IVP 10/13/16 02:00 (Dulcolax Supp) 10 mg DAILY PRN [place] 10/13/16 02:00 (Tylenol) 650 mg Q6H PRN PO 10/13/16 02:00 ([place] 5-325 Mg) 1 tab Q4H PRN PO 10/13/16 02:00 Acetaminophen/ Hydrocodone Bitart 1 tab 1 tab Q4H PRN PO 10/13/16 02:00 Ceftriaxone Sodium 1000 mg/ Sodium Chloride 100 ml @ 200 mls/hr Q24H IV 10/14/16 15:00 10/18/16 13:58 (Zithromax Inj/ NS 250 ml Inj) 250 ml @ 250 mls/hr Q24H IV 10/14/16 15:00 10/18/16 15:16 (D50w (Vial) Inj) 25 ml UNSCH PRN IV 10/14/16 12:15 (Glucagon Inj) 1 mg UNSCH PRN OTHER 10/14/16 12:15 (Colace) 100 mg BID PO 10/15/16 21:00 10/18/16 21:13 Methylprednisolone Sodium Succinate 40 mg 40 mg BID IV PUSH 10/15/16 21:00 10/19/16 09:18 (D5W-09/15 NS 1000 ml Inj) 1,000 ml @ 0 mls/hr Q0M IV 10/15/16 18:39 A/P Problem List: (1) COPD (chronic obstructive pulmonary disease) ICD Code: J44.9 Status: Acute (2) Hypoxia ICD Code: R09.02 Status: Acute (3) PNA (pneumonia) ICD Code: J18.9 Status: Acute (4) Tobacco abuse ICD Code: Z72.0 Status: Acute Assessment and Plan PNA/ COPD The pt has diffuse wheezing on exam. CXR w/ extensive infiltrate and scarring left mid to lower lung, CTA pulm negative for PE, likely cor pulmonale, severe emphysema, near complete consolidation LAURA. Pulmonology consult appreciated. Sputum culture with normal respiratory gianfranco. Bronchoscopy performed 10/16/16. Inflammation seen but no mass per pulmonology. Pt almost feels at baseline. - Blood cultures no growth. - follow bronch cultures. - continue Rocephin/Zithro. - follow up with pulmonary as an outpt. - Continue w/ Solu-Medrol, DuoNeb, Mucinex, Symbicort. Wean Solu-Medrol to twice a day. Prednisone taper upon discharge. - incentive spirometry. - encourage ambulation. - failed oxygen walk test x 2. Unable to afford home oxygen. Will try again in AM. Tobacco Abuse Counselled. - Ativan/NicoDerm if needed. Hyperglycemia S/t steroid use. - monitor glucose and wean steroids as tolerated. DVT Prophylaxis: SCD/Teds. Discharge Planning Anticipate d/c home when he passes walk test or when home oxygen can be arranged. Problem Qualifiers (1) PNA (pneumonia): Qualified Code: J18.9 - Pneumonia of left lung due to infectious organism, unspecified part of lung Willard Cosby DO Oct 19, 2016 11:25
[2016-10-19] MEDS: cefTRIAXone INJ 1,000 MG in SODIUM CHLORIDE 0.9% INJ 100 ML IV SCH (14:53)
[2016-10-19] MEDS: AZITHROMYCIN INJ 500 MG in SODIUM CHLOR 0.9% 250 ML INJ 250 ML IV SCH (16:10)
[2016-10-20] VITALS (7 sets, daily range): BP systolic 102–116; BP diastolic 60–72; PULSE 77–90; RESP 16–20; TEMP 97.2–98; O2SAT 93–97
[2016-10-20] MEDS: INSULIN ASPART SUPPLEMENTAL SCALE SQ SCH ×3 (06:30→16:22)
[2016-10-20] MEDS: SODIUM CHLORIDE 0.9% FLUSH 5 ML FLUSH FLUSH SCH (09:04)
[2016-10-20] MEDS: methylPREDNISolone SOD SUCC 40 MG/1 ML VIAL IV PUSH SCH (09:04)
[2016-10-20] MEDS: BUDESONIDE-FORMOTEROL 160/4.5 MCG INHALER INH SCH (09:04)
[2016-10-20] MEDS: DOCUSATE SODIUM 100 MG CAP PO SCH (09:04)
[2016-10-20] MEDS: guaiFENesin E.R. 600 MG TAB PO SCH (09:04)
[2016-10-20] MEDS: cefTRIAXone INJ 1,000 MG in SODIUM CHLORIDE 0.9% INJ 100 ML IV SCH (15:06)
--- NOTE | 2016-10-20 15:18 | HHI.PR ---
Subjective Remarks Follow-up COPD, dyspnea. The patient states that he feels much better today. He feels that he is ready to go home. A family member has offered to help pay for his home oxygen. Objective Vitals Vital Signs Date Time Temp Pulse Resp B/P Pulse Ox O2 Delivery O2 Flow Rate FiO2 10/20/16 13:00 97 Nasal Cannula 3.00 10/20/16 12:00 97.9 90 20 116/68 93 10/20/16 08:00 97.5 81 20 113/72 96 10/20/16 06:10 95 Nasal Cannula 3.00 10/20/16 04:00 97.2 77 18 102/64 96 10/20/16 00:00 97.9 82 18 112/60 95 10/19/16 20:00 97.8 93 18 112/58 93 10/19/16 16:00 97.8 84 20 112/66 94 I/O 10/19/16 10/19/16 10/19/16 10/20/16 10/20/16 10/20/16 07:00 15:00 23:00 07:00 15:00 23:00 Intake Total 120 ml 480 ml 480 ml 480 ml 480 ml Balance 120 ml 480 ml 480 ml 480 ml 480 ml Intake Oral 120 ml 480 ml 480 ml 480 ml 480 ml # Voids 4 5 3 3 8 # Bowel Movements 2 1 Imaging Last Impressions Chest X-Ray 10/16/16 0000 Signed Impressions: Service Date/Time: October 12:26 - CONCLUSION: 1. Severe emphysema without pneumothorax on the left. 2. Left basilar pneumonia. There has been no significant change when compared to the prior exam. Quentin Clayton MD CT Angiography 10/13/16 0042 Signed Impressions: Service Date/Time: Thursday, October 13, 2016 00:56 - CONCLUSION: 1. No pulmonary embolus. 2. Suspected cor pulmonale. 3. Severe emphysema. 4. Essentially complete consolidation of the non-emphysematous portion of the left upper lobe. Numerous fluid and air-filled cystic spaces, nonspecific. This may be inability to clear secretions from the bulla. Pulmonary abscesses not excludable. 5. Mediastinal and left hilar lymphadenopathy. Sean Andrew MD Lower Extremity Ultrasound 10/12/16 1391 Signed Impressions: Service Date/Time: Wednesday, October 12, 2016 22:55 - CONCLUSION: No DVT of either lower extremity. Sean Andrew MD Objective Remarks General: No acute distress. Heart: Regular rate and rhythm. No murmur. Lungs: Mild scattered wheeze. Breathing is nonlabored. Abdomen: Soft, nontender, nondistended. Extremities: No lower extremity edema. Psych: Alert and oriented. Procedures Bronchoscopy 10/16/16. Urinary Catheter: No Vascular Central Line Catheter: No A/P Problem List: (1) COPD (chronic obstructive pulmonary disease) ICD Code: J44.9 Status: Chronic (2) Hypoxia ICD Code: R09.02 Status: Acute (3) PNA (pneumonia) ICD Code: J18.9 Status: Acute (4) Tobacco abuse ICD Code: Z72.0 Status: Chronic Assessment and Plan 1. COPD, pneumonia: Status post bronchoscopy on 10/16/16. Appreciate pulmonology recommendations. Sputum culture growing normal respiratory gianfranco. Continue antibiotics, steroids, bronchodilators. Continue incentive spirometry. Encourage ambulation. Patient has failed walk test 2. 2. Tobacco abuse: Patient has been counseled. 3. Hyperglycemia: Secondary to steroid use. 4. DVT prophylaxis: SCDs, PABLO hose. Discharge Planning Discharge home today with home oxygen. Problem Qualifiers (1) PNA (pneumonia): Qualified Code: J18.9 - Pneumonia of left lung due to infectious organism, unspecified part of lung Jacob Menchaca MD Oct 20, 2016 15:18
--- NOTE | 2016-10-20 15:41 | HHI.DCPOC ---
Discharge Care Plan Diagnosis: (1) Hypoxia (2) Sepsis (3) COPD exacerbation (4) PNA (pneumonia) (5) COPD (chronic obstructive pulmonary disease) (6) Tobacco abuse Goals to Promote Your Health * To prevent worsening of your condition and complications * To maintain your health at the optimal level Directions to Meet Your Goals Take your medications as prescribed Follow your dietary instruction Follow activity as directed Keep your appointments as scheduled Take your immunizations and boosters as scheduled If your symptoms worsen call your PCP, if no PCP go to Urgent Care Center or Emergency Room Smoking is Dangerous to Your Health. Avoid second hand smoke Call the 24-hour hour crisis hotline for domestic abuse at Jacob Menchaca MD Oct 20, 2016 15:41
--- NOTE | 2016-10-20 15:43 | HHI.DS ---
cc: Forest Oliva DO Discharge Summary Admission Date Oct 13, 2016 at 01:24 Discharge Date: Oct 20, 2016 Admitting Diagnosis COPD exacerbation, hypoxia on Room air, Pneumonia (1) COPD (chronic obstructive pulmonary disease) ICD Code: J44.9 (2) Hypoxia ICD Code: R09.02 (3) PNA (pneumonia) ICD Code: J18.9 (4) Tobacco abuse ICD Code: Z72.0 Procedures Bronchoscopy 10/16/16. Brief History - From Admission This is a 56-year-old male with a PMH of COPD and Tobacco Abuse who presented to the ER with complaints of SOB and wheezing. States symptoms started approx 3wks ago, seen by PCP and given Medrol Dosepak and Doxycycline 100mg bid x14 days which he completed. States he's been having ongoing SOB since then in addition to productive cough w/ brown-colored sputum. +fever at home w/ Temp 100.7. No chest pain or sick contacts. On arrival, BP 130/92, HR 110, O2 sat 88% on RA, Afebrile. WBC 12.9. Chemistry essentially unremarkable. CXR with extensive infiltrate left mid to lower lung. CTA Pulm negative for PE, suspected cor pulmonale, severe emphysema and essentially complete consolidation of LAURA w/ possible pulmonary abscesses. S/p Rocephin/Zithro in ER in addition to Blood Cultures. Imaging Last Impressions Chest X-Ray 10/16/16 0000 Signed Impressions: Service Date/Time: October 12:26 - CONCLUSION: 1. Severe emphysema without pneumothorax on the left. 2. Left basilar pneumonia. There has been no significant change when compared to the prior exam. Quentin Clayton MD CT Angiography 10/13/16 0042 Signed Impressions: Service Date/Time: Thursday, October 13, 2016 00:56 - CONCLUSION: 1. No pulmonary embolus. 2. Suspected cor pulmonale. 3. Severe emphysema. 4. Essentially complete consolidation of the non-emphysematous portion of the left upper lobe. Numerous fluid and air-filled cystic spaces, nonspecific. This may be inability to clear secretions from the bulla. Pulmonary abscesses not excludable. 5. Mediastinal and left hilar lymphadenopathy. Sean Andrew MD Lower Extremity Ultrasound 10/12/16 2423 Signed Impressions: Service Date/Time: Wednesday, October 12, 2016 22:55 - CONCLUSION: No DVT of either lower extremity. Sean Andrew MD PE at Discharge General: No acute distress. Heart: Regular rate and rhythm. No murmur. Lungs: Mild scattered wheeze. Breathing is nonlabored. Abdomen: Soft, nontender, nondistended. Extremities: No lower extremity edema. Psych: Alert and oriented. Hospital Course The patient was admitted for management of COPD exacerbation. He was continued on steroids, bronchodilators, supplemental oxygen. He was placed on antibiotics for treatment of pneumonia. Pulmonology was consulted. Bronchoscopy was done on 10/16/16. The patient was noted to have moderate endobronchitis and mucoid secretions. The patient continued to improve throughout the hospitalization. Multiple respiratory walker tests showed that the patient needed home oxygen. Arrangements were placed management and the patient was able to find a family member to help pay for the oxygen at home. Once arrangements were made, the patient was felt to be stable for discharge home. Pt Condition on Discharge: Stable Discharge Disposition: Discharge Home Discharge Time: > 30 minutes Discharge Instructions DIET: Follow Instructions for: As Tolerated, No Restrictions Activities you can perform: Regular-No Restrictions Follow up Referrals: Hand Surgery PCP Follow-up - 1 Week New Medications: Azithromycin (Azithromycin) 500 Mg Tab 500 MG PO DAILY Infection #2 Ref 0 TAB Cefuroxime (Ceftin) 500 Mg Tab 500 MG PO BID Infection #8 Ref 0 TAB Oxygen tank (Oxygen tank) 1 Ea Tank 2 LITER MIGUEL ANGEL.CANULA CONTINUOUS Oxygen Concentrator Portable Gaseous 2 L/min via Nasal Cannula Continuous For 99 months HYPOXEMIA PREVENTION #2 CYLINDER Prednisone (48) 10 mg tab Dose Pack (Prednisone (48) 10 mg tab Dose Pack) 10 Mg Dspk 10 MG PO DIRECTED Inflammation #1 Ref 0 DSPK Budesonide-Formoterol Inh (Symbicort Inh) 160-4.5 Mcg/Act Aero 2 PUFF INH Q12HR COPD #2 INHALER Continued Medications: () 18 Gm Aero 2 PUFF INH Q4 PRN WHEEZING #1 Discontinued Medications: Doxycycline Hyclate 100 mg (Doxycycline Hyclate 100 mg) 100 Mg Cap 1 TAB PO BID #14 Prednisone (Deltasone) 20 Mg Tab 2 TAB PO DAILY Days 5 Jacob Menchaca MD Oct 20, 2016 15:43
[2016-10-20] MEDS: AZITHROMYCIN INJ 500 MG in SODIUM CHLOR 0.9% 250 ML INJ 250 ML IV SCH (15:48)
--- NOTE | 2016-10-20 19:25 | HHI.PR ---
Subjective Remarks No wheezing or cough. Needs home o2 . It was arranged.Bronch result was so far Negative Objective Vital Signs Date Time Temp Pulse Resp B/P Pulse Ox O2 Delivery O2 Flow Rate FiO2 10/20/16 16:00 98.0 84 16 107/64 96 10/20/16 13:00 97 Nasal Cannula 3.00 10/20/16 12:00 97.9 90 20 116/68 93 10/20/16 08:00 97.5 81 20 113/72 96 10/20/16 06:10 95 Nasal Cannula 3.00 10/20/16 04:00 97.2 77 18 102/64 96 10/20/16 00:00 97.9 82 18 112/60 95 10/19/16 20:00 97.8 93 18 112/58 93 I/O 10/19/16 10/19/16 10/19/16 10/20/16 10/20/16 10/20/16 07:00 15:00 23:00 07:00 15:00 23:00 Intake Total 120 ml 480 ml 480 ml 480 ml 480 ml Balance 120 ml 480 ml 480 ml 480 ml 480 ml Intake Oral 120 ml 480 ml 480 ml 480 ml 480 ml # Voids 4 5 3 3 8 # Bowel Movements 2 1 Objective Remarks GENERAL: This averagely built middle-aged white male was in no acute distress. HEENT: Head normocephalic. Pupils are reactive. Tongue is moist. Throat is injected. NECK: Supple. No bruits or thyroid enlargement. CHEST: Distant breath sounds with Occasional crackles over the left lower chest . HEART SOUNDS: Irregular S1 and S2 with no murmur. No S3 gallop. ABDOMEN: The abdomen is soft and protuberant without masses. No organomegaly or tenderness. The bowel sounds are active. EXTREMITIES: No lesions. No edema. NEUROLOGIC: Reflexes are 1+ with no gross motor deficits. SKIN: No lesions observed. Assessment and Plan Assessment and Plan IMPRESSION 1. Extensive left lower lobe pneumonia and hilar adenopathy. 2. Chronic obstructive pulmonary disease with emphysema and chronic bronchitis. 3. Nicotine dependency. 4. Rule out obstructive pneumonitis. Plan : 1. Continue antibiotics ceftin 500 mg bid X 5 days 2. D/C Nebs and add Spiriva , 1 cap daily. 3. O2 at 3 L. 4. Ventolin HFA , 2 puffs tid prn 5. Continue Symbicort Inhaler 160/4.5 Mcg 2 puffs bid 6. Home on O2 2L. 7. Will F/U as OP in 2 weeks Salas Carrion MD Oct 20, 2016 19:25
[2016-11-04] MEDS ORDERED: METH125I2 IM (15:56)
[2016-11-04] MEDS ORDERED: VENTAER INH ×2 (15:59→16:04)
[2016-11-04] MEDS ORDERED: PRED5TAB PO ×2 (16:01→16:04)
[2016-11-04] MEDS ORDERED: ALBU.5I NEB ×2 (16:02→16:04)
[2016-12-17] MEDS ORDERED: METH125I2 IM (09:48)
[2016-12-30] MEDS ORDERED: LEVEMIR SQ (07:46)
[2017-01-14] MEDS ORDERED: BAYETES (09:13)
[2017-01-16] MEDS ORDERED: PRED5TAB PO (14:53)
[2017-01-28] MEDS ORDERED: ADVA250A INH (14:19)
[2017-02-06] MEDS ORDERED: METF500T PO (16:19)
[2017-02-10] MEDS ORDERED: INSU1MIS15 (15:16)
[2017-02-16] MEDS ORDERED: INSU1MIS15 (13:09)
[2017-03-11] MEDS ORDERED: ALBU.5I NEB (06:31)
[2017-03-11] MEDS ORDERED: PRED5TAB PO (06:31)
== END 2016-10-20 17:25 | disposition home or self-care (01) | DRG 166 ==
LOC: NEPE 22:17 → NEDA 10-13 01:24 → N04A 10-13 03:07
PROVIDERS: ADMIT Family Medicine; ATTEND Family Medicine
PROC: 0BBG8ZX Excision of Left Upper Lung Lobe, Via Natural or Artificial Opening Endoscopic, Diagnostic (ICD-10-PCS; 2016-10-16)
PROC: 0BB78ZX Excision of Left Main Bronchus, Via Natural or Artificial Opening Endoscopic, Diagnostic (ICD-10-PCS; principal; 2016-10-16 11:44)
DX: J18.9 Pneumonia, unspecified organism (principal); J96.21 Acute and chronic respiratory failure with hypoxia; I27.81 Cor pulmonale (chronic); J44.0 Chronic obstructive pulmonary disease with (acute) lower respiratory infection; F12.90 Cannabis use, unspecified, uncomplicated; F17.210 Nicotine dependence, cigarettes, uncomplicated; T38.0X5A Adverse effect of glucocorticoids and synthetic analogues, initial encounter; R73.9 Hyperglycemia, unspecified
CPT/HCPCS: 71010; 71275; 80053; 82550; 82948; 83605; 83735; 83880; 84484; 85007; 85025; 85027; 85379; 85610; 85730; 87015; 87040; 87070; 87071; 87102; 87116; 87205; 87206; 88305; 93005; 93970; 94150; 94620; 94640; 94664; 96374; 96375; J0171; J0456; J0696; J1815; J2250; J2543; J2920; J2930; J3010; J3370; J7040; J7050; J7613; Q9967

== ENCOUNTER 2016-12-02 15:43 | Inpatient (IN) | payer OTHER ==
[~2016-12-02] VITALS: Ht 172.7 cm; Wt 89.1 kg
[2016-12-02 15:43] VITALS: BP 116/68; PULSE 108; RESP 24; TEMP 100.4; O2SAT 96
[~2016-12-02 15:43] MED LIST changes: +ALBU.5I NEB; -DOXY100T PO; +OXYGENTANK NAS.CANULA; -PRED20 PO; +PRED5TAB PO; +SYMB160A INH
--- NOTE | 2016-12-02 16:44 | PD ---
HPI Chief Complaint: Fever Time Seen by Provider: 17:13 Travel History International Travel<30 days: No Contact w/Intl Traveler<30days: No Traveled to known affect area: No History of Present Illness HPI 56-year-old male with a history of COPD with emphysema and chronic bronchitis presents to the emergency department for evaluation of fever, shortness of breath and chest tightness for the past month. Patient states that about 1.5 months ago he was admitted to our hospital for the same and that his symptoms have persisted since then. States he had pneumonia and was discharged with antibiotics and steroids, states he has taking these prescriptions and finished them. States that he had intermittent fever daily for the past month, maximum temperature 100.1F. States that he is on 2 L of oxygen chronically since his most recent admission and has been wearing it. He denies chest pain however states he has chest tightness with shortness of breath. States that he does have intermittent swelling of the ankles, states that this is been going on for several months and on his previous admission they did ultrasounds that were negative. States his cough is nonproductive. Denies any abdominal pain, nausea , vomiting, diarrhea, dysuria, lightheadedness, dizziness. No other complaints. His PCP is Dr. Oliva. [facility] Past Medical History Autoimmune Disease: No Cancer: No Cardiovascular Problems: No Congestive Heart Failure: No COPD: Yes Coronary Artery Disease: No Diabetes: No Endocrine: No Genitourinary: No Headaches: Yes (Occaisionally) Hypertension: No Immune Disorder: No Implanted Vascular Access Dvce: No Musculoskeletal: No Neurologic: Yes Psychiatric: No Respiratory: Yes (COPD, 2L N/C) Tetanus Vaccination: < 5 Years Past Surgical History Other Surgery: Yes Social History Alcohol Use: No Tobacco Use: No Substance Use: No Allergies-Medications (Allergen,Severity, Reaction): Coded Allergies: No Known Allergies (Unverified , 12/02/16) Reported Meds & Prescriptions Reported Meds & Active Scripts Active Albuterol Neb (Albuterol Sulfate) 2.5 Mg/0.5 Ml Neb 2.5 Mg NEB QID NEB Note: The Albuterol Sulfate Inhalation Solution is concentrated and must be diluted. Read complete instructions carefully before using. Prednisone 5 Mg Tab 5 Mg PO DAILY Ventolin Hfa 18 GM Inh (Albuterol Sulfate) 90 Mcg/Act Aer 1 Puff INH Q4H PRN Symbicort Inh (Budesonide/Formoterol Fumarate) 160-4.5 Mcg/Act Aero 2 Puff INH Q12HR Oxygen tank (Oxygen) 1 Ea Tank 2 Liter MIGUEL ANGEL.CANULA CONTINUOUS Oxygen Concentrator Portable Gaseous 2 L/min via Nasal Cannula Continuous For 99 months Review of Systems Except as stated in HPI: all other systems reviewed are Neg Physical Exam Narrative GENERAL: Well-nourished and well-developed pleasant patient with mild work of breathing but no acute distress. SKIN: Warm and dry. HEAD: Normocephalic and atraumatic. EYES: No injection, drainage, or hyphema noted. PERRLA. EOMI. ENT: No nasal drainage noted. Oropharynx is clear. NECK: Supple and the trachea is midline. CARDIOVASCULAR: Regular rate and rhythm. RESPIRATORY: Breath sounds diminished throughout with mild wheezing at bases. Mild work of breathing. Speaking in half sentences. No accessory muscle use, rhonchi, or crackles. GASTROINTESTINAL: Abdomen is soft, non-tender, and nondistended. MUSCULOSKELETAL: No obvious deformities, swelling, cyanosis, or ecchymosis is present throughout the upper and lower extremities. Patient has full range of motion without any signs of neurovascular compromise. NEUROLOGICAL: Awake, alert, and oriented. Normal speech and gait. Cranial nerves are grossly intact. Data Data Last Documented VS Vital Signs Date Time Temp Pulse Resp B/P Pulse Ox O2 Delivery O2 Flow Rate FiO2 12/02/16 16:58 95 Nasal Cannula 2 12/02/16 15:43 100.4 108 24 116/68 Orders Electrocardiogram (12/02/16 16:42) Complete Blood Count With Diff (12/02/16 16:42) Comprehensive Metabolic Panel (12/02/16 16:42) Lactic Acid Sepsis Protocol (12/02/16 16:42) Ckmb (Isoenzyme) Profile (12/02/16 16:42) Troponin I (12/02/16 16:42) Influenzae A/B Antigen (12/02/16 16:42) Blood Culture (12/02/16 16:42) Chest, Single Ap (12/02/16 16:42) Ecg Monitoring (12/02/16 16:42) Iv Access Insert/Monitor (12/02/16 16:42) Oximetry (12/02/16 16:42) Oxygen Administration (12/02/16 16:42) Methylprednisolone So Succ Inj (Solumedr (12/02/16 16:45) Albuterol-Ipratropium Neb (Duoneb Neb) (12/02/16 16:45) B-Type Natriuretic Peptide (12/02/16 16:42) Sodium Chlorid 0.9% 500 Ml Inj (Ns 500 M (12/02/16 16:45) Azithromycin Inj (Zithromax Inj) (12/02/16 17:30) Ceftriaxone Inj (Rocephin Inj) (12/02/16 17:30) Admit Order (Ed Use Only) (12/02/16 18:29) Admit To Inpatient (12/02/16 ) Inpatient Certification (12/02/16 ) Labs Laboratory Tests Test 12/02/16 12/02/16 17:00 17:10 White Blood Count 19.2 TH/MM3 Red Blood Count 3.77 MIL/MM3 Hemoglobin 10.5 GM/DL Hematocrit 31.9 % Mean Corpuscular Volume 84.7 FL Mean Corpuscular Hemoglobin 27.7 PG Mean Corpuscular Hemoglobin 32.7 % Concent Red Cell Distribution Width 17.6 % Platelet Count 407 TH/MM3 Mean Platelet Volume 7.8 FL Neutrophils (%) (Auto) 76.9 % Lymphocytes (%) (Auto) 13.5 % Monocytes (%) (Auto) 7.5 % Eosinophils (%) (Auto) 1.8 % Basophils (%) (Auto) 0.3 % Neutrophils # (Auto) 14.7 TH/MM3 Lymphocytes # (Auto) 2.6 TH/MM3 Monocytes # (Auto) 1.4 TH/MM3 Eosinophils # (Auto) 0.3 TH/MM3 Basophils # (Auto) 0.1 TH/MM3 CBC Comment DIFF FINAL Differential Comment Sodium Level 133 MEQ/L Potassium Level 4.2 MEQ/L Chloride Level 98 MEQ/L Carbon Dioxide Level 26.6 MEQ/L Anion Gap 8 MEQ/L Blood Urea Nitrogen 15 MG/DL Creatinine 1.14 MG/DL Estimat Glomerular Filtration 66 ML/MIN Rate Random Glucose 251 MG/DL Calcium Level 9.0 MG/DL Total Bilirubin 0.3 MG/DL Aspartate Amino Transf 21 U/L (AST/SGOT) Alanine Aminotransferase 71 U/L (ALT/SGPT) Alkaline Phosphatase 82 U/L Total Creatine Kinase 49 U/L Troponin I LESS THAN 0.02 NG/ML B-Type Natriuretic Peptide 63 PG/ML Total Protein 8.4 GM/DL Albumin 2.2 GM/DL Lactic Acid Level 1.9 mmol/L [facility] Medical Decision Making Medical Screen Exam Complete: Yes Emergency Medical Condition: Yes Differential Diagnosis Sepsis versus pneumonia versus COPD exacerbation versus bronchitis versus CHF Narrative Course 56-year-old male presents to the emergency department for evaluation of fever with shortness of breath and cough for 1 month. Patient has a fever 100.4F, is tachycardic with a heart rate of 108 bpm. His oxygen saturation is 96% on 2 L. He does have some mild work of breathing and wheezing. IV access is obtained, labs been drawn and sent. Patient is placed on telemetry and oximetry monitoring. Patient is administered duo nebs and Solu-Medrol 125 mg IV with IV fluids. EKG shows sinus tachycardia with no acute ST elevations or depressions. Chest x-ray shows left mid lung patchy infiltrate. CBC shows an elevated white blood for count of 19.2, mild anemia with a hemoglobin of 10.5, hematocrit 31.9. CMP shows hyperglycemia with a glucose of 251. Otherwise unremarkable. Troponin is less than 0.02. Lactic acid is 1.9. The patient has recurrent pneumonia with sepsis. He has been administered Rocephin and Zithromax. He'll be admitted to medicine service for IV antibiotics. I discussed the case with my attending physician Dr. Ortega who is aware of the patients history, physical examination findings, and treatment plan. Sepsis Criteria SIRS Criteria (2 or more): Temp > 100.9 or < 96.8, Heart rate over 90, WBC > 76926, < 4000 or > 10% bands Sepsis Criteria (SIRS+source): Infect source susp/known Physician Communication Physician Communication I spoke with Dr. Cook [facility] who agrees to admit the patient to her service. Diagnosis Primary Impression: Sepsis Qualified Code: A41.9 - Sepsis, due to unspecified organism Additional Impressions: PNA (pneumonia) Qualified Code: J18.1 - Pneumonia of left upper lobe due to infectious organism COPD exacerbation Admitting Information Admitting Physician Requests: Admit Izzy Baldwin Dec 02, 2016 16:44
[2016-12-02] MEDS ORDERED: methylPREDNISolone SOD SUCC 125 MG/2 ML VIAL IVP ONE (16:45)
[2016-12-02] MEDS ORDERED: SODIUM CHLORID 0.9% 500 ML INJ 500 ML IV ONE (16:45)
[2016-12-02 16:50] VITALS: O2SAT 96
[2016-12-02] MEDS: RESP: ALBUTEROL 2.5 MG/IPRATROPIUM 0.5 MG NEB (SCH) INH (16:50)
--- NOTE | 2016-12-02 17:15 | RADRPT ---
EXAM DATE/TIME: 12/02/2016 16:56 [facility] COMPARISON: CT PULMONARY ANGIOGRAM, October 13, 2016, 0:56. CHEST SINGLE AP, October 16, 2016, 12:26. INDICATIONS : Shortness of breath. MEDICAL HISTORY : Chronic obstructive pulmonary disease. SURGICAL HISTORY : None. ENCOUNTER: Initial ACUITY: 1 day PAIN SCORE: 0/10 LOCATION: Bilateral chest FINDINGS: Extensive emphysematous changes are again noted bilaterally. Patchy infiltrates are noted within the left midlung field. The heart is stable. CONCLUSION: 1. Extensive emphysematous changes bilaterally. 2. Patchy infiltrate within the left midlung field. Salas Duarte MD on December 02, 2016 at 17:10 Board Certified Radiologist. This report was verified electronically.
[2016-12-02] MEDS ORDERED: cefTRIAXone INJ 1,000 MG in SODIUM CHLORIDE 0.9% INJ 100 ML IV ONE (17:30)
[2016-12-02] MEDS ORDERED: AZITHROMYCIN INJ 500 MG in SODIUM CHLOR 0.9% 250 ML INJ 250 ML IV ONE (17:30)
[2016-12-02 17:43] LABS: AUTOMATED NEUTROPHIL # 14.7 TH/MM3 (1.8-7.7); BASOPHIL # 0.1 TH/MM3 (0-0.2); BASOPHIL % 0.3 % (0.0-2.0); EOSINOPHIL # 0.3 TH/MM3 (0-0.4); EOSINOPHIL % 1.8 % (0.0-4.0); HEMATOCRIT 31.9 % (39.0-51.0); HEMO FLAGS DIFF FINAL; LYMPH % 13.5 % (9.0-44.0); LYMPHOCYTE # 2.6 TH/MM3 (1.0-4.8); MEAN CELL VOLUME 84.7 FL (80.0-100.0); MEAN CORPUSCULAR HEMOGLOBIN 27.7 PG (27.0-34.0); MEAN CORPUSCULAR HGB CONC 32.7 % (32.0-36.0); MONO % 7.5 % (0.0-8.0); NEUT % 76.9 % (16.0-70.0); PLATELET COUNT 407 TH/MM3 (150-450); RED BLOOD COUNT 3.77 MIL/MM3 (4.50-5.90); RED CELL DISTRIBUTION WIDTH 17.6 % (11.6-17.2); WHITE BLOOD COUNT 19.2 TH/MM3 (4.0-11.0)
[2016-12-02 17:46] LABS: ALT (GPT) 71 U/L (12-78); ANION GAP 8 MEQ/L (5-15); AST (GOT) 21 U/L (15-37); BICARBONATE 26.6 MEQ/L (21.0-32.0); BLOOD UREA NITROGEN 15 MG/DL (7-18); CHLORIDE 98 MEQ/L (98-107); GLOMERULAR FILTRATION RATE 66 ML/MIN (>89); POTASSIUM 4.2 MEQ/L (3.5-5.1); SODIUM (NA) 133 MEQ/L (136-145)
[2016-12-02 17:50] LABS: ALKALINE PHOSPHATASE 82 U/L (45-117); CREATINE KINASE 49 U/L (39-308); TOTAL BILIRUBIN ADULT 0.3 MG/DL (0.2-1.0)
[2016-12-02 18:35] VITALS: BP 100/55; PULSE 101; RESP 26; O2SAT 94
[2016-12-02 18:37] VITALS: TEMP 99.8
[2016-12-02] MEDS: RESP: ALBUTEROL 2.5 MG/IPRATROPIUM 0.5 MG NEB (SCH) NEB (19:12)
[2016-12-02 19:15] VITALS: O2SAT 94
[2016-12-02] MEDS: SODIUM CHLOR 0.9% 1000 ML INJ 1,000 ML IV SCH (19:48)
--- NOTE | 2016-12-02 20:48 | HHI.HP ---
HPI Service [facility] Primary Care Physician Cecelia Varma MD Admission Diagnosis Sepsis, Pneumonia, COPD exacerbation Diagnoses: (1) PNA (pneumonia) (2) COPD exacerbation (3) Hyperglycemia (4) Leukocytosis (5) Anemia (6) Hyponatremia Chief Complaint: difficulty breathing Travel History International Travel<30 Days: No Contact w/Intl Traveler <30 Da: No Traveled to Known Affected Are: No History of Present Illness Mr. Sage is a 56-year-old male with a past medical history of COPD and tobacco abuse who presented to the emergency department on 12/02/2016 for evaluation of fever and shortness of breath. He was admitted from 10/13/2016 to 10/20/2016 for COPD exacerbation, hypoxia, and pneumonia. He was treated with steroids, bronchodilators, and supplemental oxygen along with antibiotics. A bronchoscopy was done to 10/16/2016 showing mild endobronchitis and thick mucoid secretions. He was discharged on home oxygen. Chest x-ray showed extensive emphysematous changes bilaterally. Patchy infiltrate within the left mid lung field. White blood count 19.2 with neutrophilia. The patient is seen in the ER. He reports that he has been having progressively worsening dyspnea despite home oxygen over the past few days. He reports symptoms are accompanied by fevers, muscle aches, and joint pains. Denies cough, chest pain, dizziness, syncope, dysuria, hematuria, abdominal pain , nausea, vomiting, or black or red stools. Denies history of hypertension, CAD, CHF, afib, stroke, seizures, clots: DVT/PE , liver problems, or kidney problems. . Review of Systems Except as stated in HPI: all other systems reviewed are Neg Past Family Social History Past Medical History COPD Pneumonia with recent hospitalization History of tobacco abuse . Past Surgical History Left index finger surgery . Reported Medications Reported Meds & Active Scripts Active Albuterol Neb (Albuterol Sulfate) 2.5 Mg/0.5 Ml Neb 2.5 Mg NEB QID NEB Note: The Albuterol Sulfate Inhalation Solution is concentrated and must be diluted. Read complete instructions carefully before using. Prednisone 5 Mg Tab 5 Mg PO DAILY Ventolin Hfa 18 GM Inh (Albuterol Sulfate) 90 Mcg/Act Aer 1 Puff INH Q4H PRN Symbicort Inh (Budesonide/Formoterol Fumarate) 160-4.5 Mcg/Act Aero 2 Puff INH Q12HR Oxygen tank (Oxygen) 1 Ea Tank 2 Liter MIGUEL ANGEL.CANULA CONTINUOUS Oxygen Concentrator Portable Gaseous 2 L/min via Nasal Cannula Continuous For 99 months Allergies: Coded Allergies: No Known Allergies (Unverified , 12/02/16) Active Ordered Medications Current Medications Methylprednisolone Sodium Succinate (SoluMEDROL INJ) 125 mg ONCE ONCE IVP Last administered on 12/02/16 16:53; Start 12/02/16 at 16:45; Stop 12/02/16 at 16:46; Status DC Albuterol/ Ipratropium 1 ampule 1 ampule Q15M INH Last administered on 16:50; Start 12/02/16 at 16:45; Stop 12/02/16 at 17:16; Status DC Sodium Chloride 500 ml @ 500 mls/hr ONCE ONCE IV Last administered on 16:53; Start 12/02/16 at 16:45; Stop 12/02/16 at 17:44; Status DC Azithromycin 500 mg/Sodium Chloride 250 ml @ 250 mls/hr ONCE ONCE IV Last administered on 12/02/16 18:21; Start 12/02/16 at 17:30; Stop 12/02/16 at 18:29 ; Status DC Ceftriaxone Sodium 1000 mg/ Sodium Chloride 100 ml @ 200 mls/hr ONCE ONCE IV Last administered on 12/02/16 17:40; Start 12/02/16 at 17:30; Stop 12/02/16 at 17:59; Status DC Sodium Chloride (NS 1000 ml Inj) 1,000 ml @ 75 mls/hr [id number] IV Last administered on 12/02/16 19:48; Start 12/02/16 at 18:45 Albuterol/ Ipratropium (Duoneb Neb) 1 ampule Q4HR WHILE AWAKE NEB NEB Last administered on 12/02/16 19:12; Start 12/02/16 at 20:00 Methylprednisolone Sodium Succinate (SoluMEDROL INJ) 40 mg Q6H IV PUSH ; Start 12/03/16 at 23:00 . Family History Mother with heart problems . Social History ETOH: rare social use Tobacco: quit smoking after last hospitalization Illicit drugs: occasional marijuana . Physical Exam Vital Signs Vital Signs Date Time Temp Pulse Resp B/P Pulse Ox O2 Delivery O2 Flow Rate FiO2 12/02/16 19:15 94 Nasal Cannula 3.00 12/02/16 18:37 99.8 12/02/16 18:35 101 26 100/55 94 Nasal Cannula 2 12/02/16 16:58 95 Nasal Cannula 2 12/02/16 16:50 96 Nasal Cannula 2.00 12/02/16 16:25 95 Nasal Cannula 12/02/16 15:43 100.4 108 24 116/68 96 Nasal Cannula 2 Physical Exam GENERAL: This is a well-nourished, well-developed patient, in no apparent distress. SKIN: No rashes, ecchymoses or lesions. Skin is diaphoretic. HEAD: Atraumatic. Normocephalic. EYES: No scleral icterus. No injection or drainage. ENT: Nose without bleeding, purulent drainage. NECK: Trachea midline. No JVD or lymphadenopathy. CARDIOVASCULAR: Regular rate and rhythm without murmurs, gallops, or rubs. RESPIRATORY: diminished air movement throughout bilateral lung grider; sl. dyspneic with conversation. Breath sounds equal bilaterally. No wheezes, rales , or rhonchi. GASTROINTESTINAL: Abdomen soft, non-tender, nondistended. No guarding. MUSCULOSKELETAL: Extremities without clubbing, cyanosis, or edema. No calf tenderness. NEUROLOGICAL: Awake and alert. Motor and sensory grossly within normal limits. Normal speech. . Laboratory Laboratory Tests Test 12/02/16 12/02/16 17:00 17:10 White Blood Count 19.2 Red Blood Count 3.77 Hemoglobin 10.5 Hematocrit 31.9 Mean Corpuscular Volume 84.7 Mean Corpuscular Hemoglobin 27.7 Mean Corpuscular Hemoglobin 32.7 Concent Red Cell Distribution Width 17.6 Platelet Count 407 Mean Platelet Volume 7.8 Neutrophils (%) (Auto) 76.9 Lymphocytes (%) (Auto) 13.5 Monocytes (%) (Auto) 7.5 Eosinophils (%) (Auto) 1.8 Basophils (%) (Auto) 0.3 Neutrophils # (Auto) 14.7 Lymphocytes # (Auto) 2.6 Monocytes # (Auto) 1.4 Eosinophils # (Auto) 0.3 Basophils # (Auto) 0.1 CBC Comment DIFF FINAL Differential Comment Sodium Level 133 Potassium Level 4.2 Chloride Level 98 Carbon Dioxide Level 26.6 Anion Gap 8 Blood Urea Nitrogen 15 Creatinine 1.14 Estimat Glomerular Filtration 66 Rate Random Glucose 251 Calcium Level 9.0 Total Bilirubin 0.3 Aspartate Amino Transf 21 (AST/SGOT) Alanine Aminotransferase 71 (ALT/SGPT) Alkaline Phosphatase 82 Total Creatine Kinase 49 Troponin I LESS THAN 0.02 B-Type Natriuretic Peptide 63 Total Protein 8.4 Albumin 2.2 Lactic Acid Level 1.9 Date/Time Procedure Status Source Growth 12/02/16 17:00 Aerobic Blood Culture Received Blood Peripheral Pending 12/02/16 17:00 Anaerobic Blood Culture Received Blood Peripheral Pending Result Diagram: 12/02/16 1700 12/02/16 1700 Imaging Last Impressions Chest X-Ray 12/02/16 1642 Signed Impressions: Service Date/Time: Friday, December 02, 2016 16:56 - CONCLUSION: 1. Extensive emphysematous changes bilaterally. 2. Patchy infiltrate within the left midlung field. Salas Duarte MD . Assessment and Plan Problem List: (1) PNA (pneumonia) ICD Code: J18.9 Status: Acute (2) COPD exacerbation ICD Code: J44.1 Status: Acute (3) Hyperglycemia ICD Code: R73.9 Status: Acute (4) Leukocytosis ICD Code: D72.829 Status: Acute (5) Anemia ICD Code: D64.9 Status: Acute (6) Hyponatremia ICD Code: E87.1 Status: Acute Assessment and Plan Mr. Sage is a 56-year-old male with a past medical history of COPD and tobacco abuse who presented to the emergency department on 12/02/2016 for evaluation of fever and shortness of breath. He was found to have fever about 100.4, tachycardia, and oxygen saturation of 96% on 2 L. Dyspnea and wheezing were noted in the ER. Chest x-ray shows left midlung patchy infiltrate and the patient is admitted for treatment of pneumonia. Pneumonia - consult Dr. Oshea, tower operator who followed during last admission - supplemental oxygen titrated to maintain oxygen saturation > 92% - Solumedrol 40 mg IV q6h - Levaquin 750 mg IV q24h - legionella and pneumococcal urinary antigen testing - sputum culture and sensitivity Hyperglycemia - Blood glucose 251 on admission - likely related to steroid therapy - check hgA1C - follow results - Accuchecks ac and hs with low dose Novolog sliding scale coverage - monitor blood glucose trends and adjust treatment as indicated Leukocytosis with neutrophilia likely secondary to pneumonia vs secondary to steroid use - Lactic acid 1.9 on admission - Recheck CBC in a.m. and follow trends Anemia - Hemoglobin 10.5 on admission; was 11.0 on 10/15/2016 - appears stable - Recheck CBC in a.m. and follow trends Mild hyponatremia - Sodium 133 on admission - Receiving IV fluids - Normal Saline at 75 cc/hour - Recheck BMP in a.m. and follow results DVT prophylaxis - SCDs Written by Juliet Escalante, acting as scribe for Dr. Dao on 12/02/16 at 20:48. .All or portions of this note were transcribed by scribe [ Juliet Escalante]. I, Dr. Alon Dao personally performed the history, physical exam, and medical decision making; and confirmed the accuracy of the information in the transcribed note. Authenticated by Dr. Alon Dao on 12/02/16 at 20:48. Discussed Condition With ER physician and patient . Physician Certification 2 Midnight Certification Type: Admission for Inpatient Services Order for Inpatient Services The services are ordered in accordance with Medicare regulations or non- Medicare payer requirements, as applicable. In the case of services not specified as inpatient-only, they are appropriately provided as inpatient services in accordance with the 2-midnight benchmark. Estimated LOS (days): 3 days is the estimated time the patient will need to remain in the hospital, assuming treatment plan goals are met and no additional complications. Post-Hospital Plan: Home Problem Qualifiers (1) PNA (pneumonia): Qualified Code: J18.1 - Pneumonia of left upper lobe due to infectious organism Juliet Escalante Dec 02, 2016 20:48 Alon Dao MD Dec 03, 2016 01:57
[2016-12-02] MEDS ORDERED: GLUCAGON 1 MG/ML VIAL OTHER PRN (21:30)
[2016-12-02] MEDS ORDERED: DEXTROSE 50% IN WATER 50 ML VIAL(D50) IV PUSH PRN (21:30)
[2016-12-02] MEDS: LEVOFLOXACIN 750 MG PREMIX INJ 150 ML IV SCH (21:59)
[2016-12-02 22:27] VITALS: BP 102/68; PULSE 92; RESP 26; O2SAT 94
[2016-12-03] VITALS (8 sets, daily range): BP systolic 93–117; BP diastolic 56–60; PULSE 83–99; RESP 16–23; TEMP 97–97.3; O2SAT 93–97
[2016-12-03] MEDS: INSULIN ASPART SUPPLEMENTAL SCALE SQ SCH ×3 (00:37→12:23)
[2016-12-03] MEDS ORDERED: INSULIN ASPART 1,000 UNITS/10 ML VIAL SQ ONE (02:15)
[2016-12-03] MEDS: RESP: ALBUTEROL 2.5 MG/IPRATROPIUM 0.5 MG NEB (SCH) NEB ×5 (07:31→23:27)
[2016-12-03] MEDS: PANTOPRAZOLE SOD 40 MG DELAYED RELEASE TAB PO SCH (08:14)
[2016-12-03] MEDS: SODIUM CHLOR 0.9% 1000 ML INJ 1,000 ML IV SCH ×2 (08:15→22:11)
--- NOTE | 2016-12-03 09:02 | HHI.PR ---
Subjective Remarks This is a pleasant 56 y/o Male with COPD and tobacco abuse who came to ER. on for evaluation of fever and Shortness of breath, recently admitted on 10/13/16 to 10/20/16 for COPD exacerbation he has Hypoxia and Pneumonia, bronchoscopy performed on 10/16/16 showed endobronchitis and thick mucoid secretions. was discharged home on Home Oxygen, CXR showed extensive emphysematous changes bilaterally. Patchy infiltrate within the left mid lung field, WBC 19.2 with Neutrophilia. seen in his bedroom no complaint he was admitted today awaiting for recommendations by training specialist, may need ID specialist consult Objective Vital Signs Date Time Temp Pulse Resp B/P Pulse Ox O2 Delivery O2 Flow Rate FiO2 12/03/16 08:04 97.2 95 21 117/56 94 12/03/16 07:34 95 Nasal Cannula 2.00 12/03/16 04:00 97.2 85 16 99/56 93 12/03/16 00:00 97.2 83 16 103/58 96 12/02/16 22:27 92 26 102/68 94 Nasal Cannula 2 12/02/16 19:15 94 Nasal Cannula 3.00 12/02/16 18:37 99.8 12/02/16 18:35 101 26 100/55 94 Nasal Cannula 2 12/02/16 16:58 95 Nasal Cannula 2 12/02/16 16:50 96 Nasal Cannula 2.00 12/02/16 16:25 95 Nasal Cannula 12/02/16 15:43 100.4 108 24 116/68 96 Nasal Cannula 2 I/O 12/02/16 12/02/16 12/02/16 12/03/16 12/03/16 12/03/16 07:00 15:00 23:00 07:00 15:00 23:00 Intake Total 1170 ml Balance 1170 ml Intake Oral 720 ml IV Total 450 ml # Voids 4 # Bowel Movements 0 Result Diagram: 12/02/16 1700 12/02/16 1700 Imaging Last Impressions Chest X-Ray 12/02/16 1642 Signed Impressions: Service Date/Time: Friday, December 02, 2016 16:56 - CONCLUSION: 1. Extensive emphysematous changes bilaterally. 2. Patchy infiltrate within the left midlung field. Salas Duarte MD Procedures No procedures performed Other Results Laboratory Tests Test 12/02/16 12/02/16 17:00 17:10 White Blood Count 19.2 TH/MM3 Red Blood Count 3.77 MIL/MM3 Hemoglobin 10.5 GM/DL Hematocrit 31.9 % Mean Corpuscular Volume 84.7 FL Mean Corpuscular Hemoglobin 27.7 PG Mean Corpuscular Hemoglobin 32.7 % Concent Red Cell Distribution Width 17.6 % Platelet Count 407 TH/MM3 Mean Platelet Volume 7.8 FL Neutrophils (%) (Auto) 76.9 % Lymphocytes (%) (Auto) 13.5 % Monocytes (%) (Auto) 7.5 % Eosinophils (%) (Auto) 1.8 % Basophils (%) (Auto) 0.3 % Neutrophils # (Auto) 14.7 TH/MM3 Lymphocytes # (Auto) 2.6 TH/MM3 Monocytes # (Auto) 1.4 TH/MM3 Eosinophils # (Auto) 0.3 TH/MM3 Basophils # (Auto) 0.1 TH/MM3 CBC Comment DIFF FINAL Differential Comment Sodium Level 133 MEQ/L Potassium Level 4.2 MEQ/L Chloride Level 98 MEQ/L Carbon Dioxide Level 26.6 MEQ/L Anion Gap 8 MEQ/L Blood Urea Nitrogen 15 MG/DL Creatinine 1.14 MG/DL Estimat Glomerular Filtration 66 ML/MIN Rate Random Glucose 251 MG/DL Calcium Level 9.0 MG/DL Total Bilirubin 0.3 MG/DL Aspartate Amino Transf 21 U/L (AST/SGOT) Alanine Aminotransferase 71 U/L (ALT/SGPT) Alkaline Phosphatase 82 U/L Total Creatine Kinase 49 U/L Troponin I LESS THAN 0.02 NG/ML B-Type Natriuretic Peptide 63 PG/ML Total Protein 8.4 GM/DL Albumin 2.2 GM/DL Lactic Acid Level 1.9 mmol/L Objective Remarks GENERAL: This is a well-nourished, well-developed patient, in no apparent distress. SKIN: No rashes, ecchymoses or lesions. Skin is diaphoretic. HEAD: Atraumatic. Normocephalic. EYES: No scleral icterus. No injection or drainage. ENT: Nose without bleeding, purulent drainage. NECK: Trachea midline. No JVD or lymphadenopathy. CARDIOVASCULAR: Regular rate and rhythm without murmurs, gallops, or rubs. RESPIRATORY: Decreased breath sounds bilateral, no wheezing or crackles. GASTROINTESTINAL: Abdomen soft, non-tender, nondistended. No guarding. MUSCULOSKELETAL: Extremities without clubbing, cyanosis, or edema. No calf tenderness. NEUROLOGICAL: Awake and alert. Motor and sensory grossly within normal limits. Normal speech. Medications and IVs Current Medications Medications (Trade) Dose Ordered Sig/[place] Route Start Time Stop Time Status Last Admin (NS 1000 ml Inj) 1,000 ml @ 75 mls/hr [id number] IV 12/02/16 18:45 12/03/16 08:15 (SoluMEDROL INJ) 40 mg Q6H IV PUSH 12/03/16 23:00 (D50w (Vial) Inj) 25 ml UNSCH PRN IV PUSH 12/02/16 21:30 (Glucagon Inj) 1 mg UNSCH PRN OTHER 12/02/16 21:30 Pantoprazole Sodium 40 mg 40 mg DAILY PO 12/03/16 09:00 12/03/16 08:14 (Levaquin 750 Mg Premix Inj) 150 ml @ 100 mls/hr Q24H IV 12/02/16 22:00 12/02/16 21:59 (Pneumovax-23 Inj) 25 mcg ONCE ONCE IM 12/04/16 10:00 12/04/16 10:01 A/P Assessment and Plan 1. Pneumonia Health care associated Pneumonia, training specialist following, Doctor Carrion Oxygen to keep oxygen saturation >92%, Solu-Medrol 40 mg IV every six hours , Levaquin 750 mg IV daily, following blood cultures, sputum culture, Legionella and Pneumococcal antigen. titrated steroids to 40 mg TID and continue titration. 2. Hyperglycemia likely related to steroid use, follow Hemoglobin A1C, sliding scale Medium dose schedule 5 units 30 minutes before each meal, Levemir 10 units BID and following blood sugars 3. Leukocytosis probable secondary to the use of Steroids. 4. Anemia stable and following 5. COPD continue Bronchodilator, Mucolytic and incentive spirometry. 6. Tobacco dependence strongly recommended to stop smoking. DVT prophylaxis: Lovenox Discharge Planning once clear by training specialist. Winston Bass MD Dec 03, 2016 09:02 Discussed Condition With ER physician and patient Winston Bass MD Dec 03, 2016 09:02
--- NOTE | 2016-12-03 10:26 | EKG ---
Date Performed: 12/02/2016 Time Performed: 17:05:19 PTAGE: 56 years EKG: SINUS TACHYCARDIA WITH SHORT NE INTERVAL ABNORMAL RHYTHM ECG PREVIOUS TRACING : 10/12/2016 23.55 DOCTOR: Prakash Burnett Interpretating Date/Time 12/03/2016 10:25:03
[2016-12-03] MEDS ORDERED: NALOXONE HCL 0.4 MG/ML AMP IV PRN (14:15)
[2016-12-03] MEDS: ENOXAPARIN SODIUM 40 MG/0.4 ML SYRINGE SQ SCH (14:48)
[2016-12-03] MEDS: guaiFENesin E.R. 600 MG TAB PO SCH ×2 (14:48→22:12)
[2016-12-03] MEDS: INSULIN DETEMIR 100 UNITS/ML VIAL SQ SCH ×2 (14:48→22:13)
[2016-12-03] MEDS: INSULIN HUMAN REGULAR 1,000 UNITS/10 ML VIAL SQ SCH (17:03)
[2016-12-03] MEDS: INSULIN NovoLIN REGULAR SUPPLEMENTAL SCALE SQ SCH ×2 (17:03→22:14)
[2016-12-03 17:23] LABS: HEMOGLOBIN A1a 1.3 %; HEMOGLOBIN A1b 2.5 %; HEMOGLOBIN Ao 77.5 %; HEMOGLOBIN LA1C 3.5 %; HEMOGLOBIN P3 5.5 %
--- NOTE | 2016-12-03 21:01 | EC ---
Study Study Date:12/03/2016 STUDY CONCLUSIONS SUMMARY - Left ventricle: The cavity size was normal. Wall thickness was normal. Systolic function was normal. The estimated ejection fraction was 70%. Wall motion was normal; there were no regional wall motion abnormalities. - Pulmonary arteries: Systolic pressure was mildly increased. PA peak pressure: 42mm Hg (S). If LV function is below 40, please consider prescribing an ACEI or ARB or document rationale for non-use. PROCEDURE DATA STUDY STATUS: Elective. Procedure: Transthoracic echocardiography. Image quality was good. Scanning was performed from the parasternal, apical, and subcostal acoustic windows. Study completion: The patient tolerated the procedure well. Transthoracic echocardiography. M-mode, complete 2D, complete spectral Doppler, and color Doppler. Height: Height: 68in. Weight: Weight: 193.6lb. Body mass index: BMI: 29.5kg/m^2. Body surface area: BSA: 2.02m^2. Patient status: Inpatient. CARDIAC ANATOMY LEFT VENTRICLE: The cavity size was normal. Wall thickness was normal. Systolic function was normal. The estimated ejection fraction was 70%. Wall motion was normal; there were no regional wall motion abnormalities. AORTIC VALVE: Trileaflet; normal thickness leaflets. Doppler: Transvalvular velocity was within the normal range. There was no stenosis. No regurgitation. Valve area: 2.49cm^2(VTI). Indexed valve area: 1.23cm^2/m^2 (VTI). Valve area: 2.17cm^2 (Vmax). Indexed valve area: 1.07cm^2/m^2 (Vmax). Mean gradient: 4mm Hg (S). AORTA: Aortic root: The aortic root was normal in size. MITRAL VALVE: Structurally normal valve. Doppler: Transvalvular velocity was within the normal range. There was no evidence for stenosis. Trace regurgitation. LEFT ATRIUM: The atrium was normal in size. RIGHT VENTRICLE: The cavity size was normal. Wall thickness was normal. PULMONIC VALVE: Doppler: Transvalvular velocity was within the normal range. There was no evidence for stenosis. No regurgitation. TRICUSPID VALVE: Structurally normal valve. Doppler: Transvalvular velocity was within the normal range. Trace regurgitation. PULMONARY ARTERY: The main pulmonary artery was normal-sized. Systolic pressure was mildly increased. RIGHT ATRIUM: The atrium was normal in size. PERICARDIUM: There was no pericardial effusion. SYSTEMIC VEINS: Inferior vena cava: The vessel was normal in size. Patient weight: 193.6lb _Ejection fraction:_ 65-75% _Fractional shortening:_ 32% up to 5Kg 5-11.5Kg 11.6-22.9Kg 23-45Kg 45-57Kg Aortic Root 7-13 <17 13-22 17-27 17-27 LA diam 6-13 <23 24-38 33-47 37-40 RVID 10-17 7-15 7-15 7-18 8-17 LVIDd 12-22 <32 24-38 33-47 37-40 LVPW 2-4 3-6 5-7 6-8 7-8 IVS 2-4 3-6 5-7 6-8 7-8 BASIC MEASUREMENTS ADULT NORMAL Left ventricle LV internal dimension, ED, chordal 51.7 mm 43-52 level, PLAX LV internal dimension, ES, chordal 31.8 mm 23-38 level, PLAX Fractional shortening, chordal level, 38 % >29 PLAX LV posterior wall thickness, ED 8.16 mm IVS/LVPW ratio, ED 0.99 <1.3 Ventricular septum Septal thickness, ED 8.06 mm Aortic valve Leaflet separation 20 mm 15-26 Aorta Root diameter, ED 33 mm Left atrium Anterior-posterior dimension 23 mm Anterior-posterior dimension index 1.14 cm/m^2 <2.2 BASIC MEASUREMENTS ADULT NORMAL Aortic valve Leaflet separation 20 mm 15-26 DOPPLER MEASUREMENTS ADULT NORMAL Main pulmonary artery Pressure, S *42 mm Hg =30 Aortic valve Peak velocity, S 145 cm/s Mean velocity, S 97.5 cm/s VTI, S 24.3 cm Mean gradient, S 4 mm Hg Valve area, VTI 2.49 cm^2 Valve area index, VTI 1.23 cm^2/m^2 Valve area, Vmax 2.17 cm^2 Valve area index, Vmax 1.07 cm^2/m^2 Mitral valve Peak E-wave velocity 39.8 cm/s Peak A-wave velocity 97.2 cm/s Deceleration time 176 ms 150-230 Peak E/A ratio 0.4 Tricuspid valve Regurgitant peak velocity 254 cm/s Peak RV-RA gradient, S 26 mm Hg Maximal regurgitant velocity 254 cm/s Systemic veins Estimated CVP 5 mm Hg Right ventricle RV pressure, S *42 mm Hg <30 Pulmonic valve Peak velocity, S 94 cm/s LEGEND: Mean values are shown as u=mean value. Asterisk (*) zeng values outside specified normal range. Prepared and signed by Haley Hawley [id number]
[2016-12-03] MEDS: LEVOFLOXACIN 750 MG PREMIX INJ 150 ML IV SCH (22:12)
[2016-12-03] MEDS ORDERED: methylPREDNISolone SOD SUCC 40 MG/1 ML VIAL IV PUSH SCH (23:00)
[2016-12-04] VITALS (10 sets, daily range): BP systolic 95–110; BP diastolic 54–63; PULSE 78–92; RESP 18–22; TEMP 97.3–97.8; O2SAT 94–99
[2016-12-04] MEDS: RESP: ALBUTEROL 2.5 MG/IPRATROPIUM 0.5 MG NEB (SCH) NEB ×6 (03:00→19:58)
[2016-12-04] MEDS: methylPREDNISolone SOD SUCC 40 MG/1 ML VIAL IV PUSH SCH ×2 (05:53→14:56)
[2016-12-04] MEDS: INSULIN NovoLIN REGULAR SUPPLEMENTAL SCALE SQ SCH ×4 (06:01→21:11)
--- NOTE | 2016-12-04 06:42 | MB ---
cc: BRONSON HOOK DATE OF CONSULTATION 12/03/2016 REASON FOR CONSULTATION COPD with exacerbation. HISTORY OF PRESENT ILLNESS This is a 56-hour-old white male with past history of COPD and chronic smoking who was admitted yesterday with cough, shortness of breath, fevers and wheezing. The patient was seen in the ER and he recently had been discharged from the hospital following treatment of exacerbation of COPD, hypoxia and pneumonia. He has been on O2 at two liters and he had been on bronchodilators and inhaled steroids and discharged home on a course of antibiotics as well. At this time, he did return with increasing dyspnea and again his chest x-ray showed a patchy left lung infiltrate. White cell count was elevated. The patient denies hemoptysis, but in the past he has had mild hemoptysis and denied any chest pains, blackout spells, and no nausea, vomiting or aspiration. PAST HISTORY Significant for: 1. COPD 2. Emphysema 3. History of pneumonia 4. Surgery on his left index finger. HABITS The patient smoked one pack per day for over 30 years and quit recently. Occasional marijuana use. Has used illicit drugs in the past. FAMILY HISTORY Significant for heart disease in his mother. MEDICATION LIST Included: 1. Nebulized albuterol/Atrovent q.i.d. 2. Prednisone 5 mg a day 3. Symbicort 160 x 4.5 two puffs b.i.d. ALLERGIES None listed. REVIEW OF SYSTEMS The patient has lost weight. He has no headaches or blackouts. He does have some wheezing and orthopnea, epigastric distress and reflux. No urinary symptoms. No leg or calf muscle pains. He has some joint pains to his extremities and anxiety attacks. PHYSICAL EXAMINATION This is a middle-aged, well-built white male who is mildly dyspneic at rest. VITAL SIGNS: Blood pressure 138/80, pulse 90, respirations 22, temperature 98.2. HEENT: Head normocephalic. Pupils reactive. Tongue is moist. Throat is injected. He has no inflammation. NECK: No bruits or thyroid enlargement or lymphadenopathy. CHEST: Distant breath sounds with expiratory wheezes throughout both lung grider. Prolonged expirations. HEART: The heart sounds are irregular, S1-S2. No murmur. No S3. ABDOMEN: Soft, protuberant without masses or organomegaly or tenderness. The bowel sounds are active. EXTREMITIES: Varicosities. No edema and normal reflexes. There were no gross motor or sensory deficits. NEUROLOGIC: Cranial nerve cranial nerves grossly intact. RECTAL: Exam deferred. IMPRESSION 1. COPD with acute exacerbation 2. Chronic left lung infiltrate with pulmonary fibrosis and bronchiectasis 3. Reactive airway disease PLAN The patient will be maintained on Levaquin 750 mg IV daily. Continue Solu-Medrol 40 mg IV q6, O2 at three liters nasal cannula, Symbicort 165/4.5 two puffs twice a day. We will ask him to use an incentive spirometer every two hours. Repeat chest x-ray and electrolytes will be done and the patient will be weaned down on the oxygen and hopefully switched to p.o. medications if he is clinically stable over the next 24-48 hours. A PET scan will be scheduled as an outpatient once he is discharged from here. Thank you Dr. Dao for this consultation. MD PHILIPPE Dooley/PAULO /11:37 PM /6:32 AM
[2016-12-04] MEDS: INSULIN HUMAN REGULAR 1,000 UNITS/10 ML VIAL SQ SCH ×3 (08:00→16:20)
[2016-12-04] MEDS: PANTOPRAZOLE SOD 40 MG DELAYED RELEASE TAB PO SCH (08:46)
[2016-12-04] MEDS: guaiFENesin E.R. 600 MG TAB PO SCH ×2 (08:47→21:11)
[2016-12-04] MEDS: INSULIN DETEMIR 100 UNITS/ML VIAL SQ SCH ×2 (08:47→21:11)
[2016-12-04] MEDS ORDERED: PNEUMOCOCCAL POLYVALENT INJ 25 MCG/0.5 ML SYR IM ONE (10:00)
[2016-12-04] MEDS: SODIUM CHLOR 0.9% 1000 ML INJ 1,000 ML IV SCH (12:12)
[2016-12-04] MEDS: ENOXAPARIN SODIUM 40 MG/0.4 ML SYRINGE SQ SCH (14:56)
--- NOTE | 2016-12-04 18:46 | HHI.PR ---
Subjective Remarks Cough and wheezing. No fever. On O2 3 l Objective Vital Signs Date Time Temp Pulse Resp B/P Pulse Ox O2 Delivery O2 Flow Rate FiO2 12/04/16 16:00 97.5 89 18 103/59 95 12/04/16 12:00 97.6 89 18 102/58 95 12/04/16 08:00 97.3 91 18 110/55 95 12/04/16 08:00 Nasal Cannula 2.00 12/04/16 07:56 97 Nasal Cannula 2.00 12/04/16 07:55 87 12/04/16 04:39 97.5 78 20 104/56 99 12/04/16 04:27 92 12/04/16 00:28 97.6 88 22 95/54 96 12/03/16 22:15 Nasal Cannula 2.00 12/03/16 20:00 97.0 89 20 93/56 95 12/03/16 19:59 97 Nasal Cannula 2.00 I/O 12/03/16 12/03/16 12/03/16 12/04/16 12/04/16 12/04/16 07:00 15:00 23:00 07:00 15:00 23:00 Intake Total 1170 ml 1975 ml 520 ml 500 ml 2520 ml Output Total 600 ml Balance 1170 ml 1975 ml -80 ml 500 ml 2520 ml Intake Oral 720 ml 480 ml 520 ml 500 ml 720 ml IV Total 450 ml 1495 ml 1800 ml Output Urine Total 600 ml # Voids 4 3 3 2 # Bowel Movements 0 1 0 0 2 Result Diagram: 12/02/16 1700 12/02/16 1700 Procedures No procedures performed Objective Remarks This is a middle-aged, well-built white male who is not Dyspneic at rest. HEENT: Head normocephalic. Pupils reactive. Tongue is moist. Throat is dry He has no inflammation. NECK: No bruits or thyroid enlargement or lymphadenopathy. CHEST: Distant breath sounds with expiratory wheezes throughout both lung grider. Prolonged expirations. HEART: The heart sounds are irregular, S1-S2. No murmur. No S3. ABDOMEN: Soft, protuberant without masses or organomegaly or tenderness. The bowel sounds are active. EXTREMITIES: Varicosities. No edema and normal reflexes. There were no gross motor or sensory deficits. NEUROLOGIC: Cranial nerve cranial nerves grossly intact. RECTAL: Exam deferred. Assessment and Plan Assessment and Plan IMPRESSION 1. COPD with acute exacerbation 2. Chronic left lung infiltrate with pulmonary fibrosis and bronchiectasis 3. Reactive airway disease Plan : 1. Switch to PO meds in am. 2. O2 at 2 L. 3. Nebs qid , duoneb. 4. D/C IV fluids . 5. Home over weekend Salas Carrion MD Dec 04, 2016 18:46
[2016-12-04 18:57] LABS: BASOPHIL % 0.2 % (0.0-2.0); EOSINOPHIL % 0.1 % (0.0-4.0); HEMATOCRIT 28.4 % (39.0-51.0); HEMO FLAGS DIFF FINAL; LYMPH % 8.9 % (9.0-44.0); MEAN CELL VOLUME 84.6 FL (80.0-100.0); MEAN CORPUSCULAR HEMOGLOBIN 27.4 PG (27.0-34.0); MEAN CORPUSCULAR HGB CONC 32.4 % (32.0-36.0); MONO % 2.3 % (0.0-8.0); NEUT % 88.5 % (16.0-70.0); PLATELET COUNT 408 TH/MM3 (150-450); RED BLOOD COUNT 3.36 MIL/MM3 (4.50-5.90); RED CELL DISTRIBUTION WIDTH 17.9 % (11.6-17.2); WHITE BLOOD COUNT 11.3 TH/MM3 (4.0-11.0)
[2016-12-04 19:24] LABS: ANION GAP 7 MEQ/L (5-15); AST (GOT) 30 U/L (15-37); BICARBONATE 26.6 MEQ/L (21.0-32.0); BLOOD UREA NITROGEN 20 MG/DL (7-18); CHLORIDE 104 MEQ/L (98-107); GLOMERULAR FILTRATION RATE 83 ML/MIN (>89); MAGNESIUM 2.2 MG/DL (1.5-2.5); POTASSIUM 3.9 MEQ/L (3.5-5.1); SODIUM (NA) 138 MEQ/L (136-145)
[2016-12-04 19:27] LABS: ALKALINE PHOSPHATASE 77 U/L (45-117); ALT (GPT) 81 U/L (12-78); TOTAL BILIRUBIN ADULT 0.1 MG/DL (0.2-1.0)
--- NOTE | 2016-12-04 20:40 | HHI.PR ---
Subjective Remarks Patient states sob is better still c/o cough states is having hard time expectorating mucus denies fevers/chills glucose noted to be elevated above 200 Objective Vitals Vital Signs Date Time Temp Pulse Resp B/P Pulse Ox O2 Delivery O2 Flow Rate FiO2 12/04/16 19:59 96 Nasal Cannula 2.00 12/04/16 16:00 97.5 89 18 103/59 95 12/04/16 12:00 97.6 89 18 102/58 95 12/04/16 08:00 97.3 91 18 110/55 95 12/04/16 08:00 Nasal Cannula 2.00 12/04/16 07:56 97 Nasal Cannula 2.00 12/04/16 07:55 87 12/04/16 04:39 97.5 78 20 104/56 99 12/04/16 04:27 92 12/04/16 00:28 97.6 88 22 95/54 96 12/03/16 22:15 Nasal Cannula 2.00 I/O 12/03/16 12/03/16 12/03/16 12/04/16 12/04/16 12/04/16 07:00 15:00 23:00 07:00 15:00 23:00 Intake Total 1170 ml 1975 ml 520 ml 500 ml 2520 ml Output Total 600 ml Balance 1170 ml 1975 ml -80 ml 500 ml 2520 ml Intake Oral 720 ml 480 ml 520 ml 500 ml 720 ml IV Total 450 ml 1495 ml 1800 ml Output Urine Total 600 ml # Voids 4 3 3 2 # Bowel Movements 0 1 0 0 2 Result Diagram: 12/04/16 1813 12/04/16 1813 Imaging Last Impressions Chest X-Ray 12/02/16 1642 Signed Impressions: Service Date/Time: Friday, December 02, 2016 16:56 - CONCLUSION: 1. Extensive emphysematous changes bilaterally. 2. Patchy infiltrate within the left midlung field. Salas Duarte MD Objective Remarks GENERAL: This is a well-nourished, well-developed patient, in no apparent distress. SKIN: No rashes, ecchymoses or lesions. Skin is diaphoretic. HEAD: Atraumatic. Normocephalic. EYES: No scleral icterus. No injection or drainage. ENT: Nose without bleeding, purulent drainage. NECK: Trachea midline. No JVD or lymphadenopathy. CARDIOVASCULAR: Regular rate and rhythm without murmurs, gallops, or rubs. RESPIRATORY: Decreased breath sounds bilateral, no wheezing or crackles. GASTROINTESTINAL: Abdomen soft, non-tender, nondistended. No guarding. MUSCULOSKELETAL: Extremities without clubbing, cyanosis, or edema. No calf tenderness. NEUROLOGICAL: Awake and alert. Motor and sensory grossly within normal limits. Normal speech. Medications and IVs Current Medications Medications (Trade) Dose Ordered Sig/[place] Route Start Time Stop Time Status Last Admin (D50w (Vial) Inj) 25 ml UNSCH PRN IV PUSH 12/02/16 21:30 (Glucagon Inj) 1 mg UNSCH PRN OTHER 12/02/16 21:30 Pantoprazole Sodium 40 mg 40 mg DAILY PO 12/03/16 09:00 12/04/16 08:46 (Levaquin 750 Mg Premix Inj) 150 ml @ 100 mls/hr Q24H IV 12/02/16 22:00 12/03/16 22:12 (Levemir Inj) 10 units Q12HR SQ 12/03/16 14:15 12/04/16 08:47 (Narcan Inj) 0.4 mg UNSCH PRN IV 12/03/16 14:15 (NovoLIN R INJ) 5 units TIDAC SQ 12/03/16 17:00 12/04/16 16:20 (Mucinex Er) 600 mg BID PO 12/03/16 14:30 12/04/16 08:47 (Lovenox Inj) 40 mg Q24H SQ 12/03/16 15:00 12/04/16 14:56 (Deltasone) 20 mg BID PO 12/04/16 21:00 Urinary Catheter: No Vascular Central Line Catheter: No A/P Problem List: (1) Sepsis ICD Code: A41.9 Status: Acute Plan: Sepsis present on admission. Patient with leukocytosis and tachycardia with a heart rate of 108. Continue IV antibiotics, IV steroids, blood cultures negative 2 days. Influenza A and B antigens negative. (2) COPD exacerbation ICD Code: J44.1 Status: Acute Plan: Patient admitted to the medical floor. Continue IV antibiotics, patient getting IV Levaquin. Continue IV steroids. Start prednisone taper. Continue Mucinex ER for cough. (3) PNA (pneumonia) ICD Code: J18.9 Status: Acute Plan: Chest x-ray obtained on admission showed extensive ancillary symptoms changes bilaterally. A patchy infiltrate in the left midlung field. Continue IV Levaquin. (4) Hyperglycemia ICD Code: R73.9 Status: Acute Plan: Patient with uncontrolled blood sugars, however seems to be having slightly better control. Continue insulin Levemir 10 units subcutaneous every 12 hours and SSI with regular insulin as well as prandial insulin 5 units 3 times a day before meals. (5) Leukocytosis ICD Code: D72.829 Status: Acute Plan: B received likely secondary to COPD with exacerbation and pneumonia. (6) Anemia ICD Code: D64.9 Status: Acute Plan: Patient has normal MCV anemia. I will check iron studies if not previously done. No signs of active bleeding. Continue to monitor CBC and hemoglobin. (7) Hyponatremia ICD Code: E87.1 Status: Acute Plan: Likely hypovolemic hyponatremia, improved after IV fluid administration. Sodium went from 133-138. Assessment and Plan GI prophylaxis: Continue Protonix by mouth Repeat reflexes: SCDs, continue Lovenox subcutaneously. Discharge Planning Possible discharge in a.m. Problem Qualifiers (1) Sepsis: Qualified Code: A41.9 - Sepsis, due to unspecified organism (2) PNA (pneumonia): Qualified Code: J18.1 - Pneumonia of left upper lobe due to infectious organism (3) Anemia: Qualified Code: D64.9 - Anemia, unspecified type Ag Craig MD Dec 04, 2016 20:40
[2016-12-04] MEDS: predniSONE 20 MG TAB PO SCH (21:11)
[2016-12-04] MEDS: LEVOFLOXACIN 750 MG PREMIX INJ 150 ML IV SCH (21:12)
[2016-12-05] VITALS (9 sets, daily range): BP systolic 100–123; BP diastolic 57–65; PULSE 80–93; RESP 18–20; TEMP 97.2–97.5; O2SAT 94–97
[2016-12-05] MEDS: RESP: ALBUTEROL 2.5 MG/IPRATROPIUM 0.5 MG NEB (SCH) NEB ×9 (01:52→20:00)
[2016-12-05] MEDS: INSULIN NovoLIN REGULAR SUPPLEMENTAL SCALE SQ SCH ×4 (06:16→21:00)
--- NOTE | 2016-12-05 06:45 | RADRPT ---
EXAM DATE/TIME: 12/05/2016 06:25 [facility] COMPARISON: CHEST SINGLE AP, December 02, 2016, 16:56. INDICATIONS : Evaluate for pneumonia. Shortness of breath. MEDICAL HISTORY : Chronic obstructive pulmonary disease. Emphysema. SURGICAL HISTORY : None. ENCOUNTER: Initial ACUITY: 1 day PAIN SCORE: 0/10 LOCATION: chest FINDINGS: PA and lateral views of the chest show bullous emphysematous changes. The largest bulla or on the lef t. Air-fluid levels are seen within the more dependent bulla. The volume of fluid is slightly higher than on the prior study. No discrete infiltrate observed on the current study. No effusions. Heart is normal in size. Bony structures are unremarkable. CONCLUSION: Bullous emphysematous changes with a moderate sized air-fluid level on the left suggesting superimpos ed infection. Chalino Bowman Jr., MD on December 05, 2016 at 6:43 Board Certified Radiologist. This report was verified electronically.
[2016-12-05 07:31] LABS: AUTOMATED NEUTROPHIL # 10.4 TH/MM3 (1.8-7.7); BASOPHIL % 0.2 % (0.0-2.0); EOSINOPHIL % 0.1 % (0.0-4.0); HEMATOCRIT 27.6 % (39.0-51.0); HEMO FLAGS DIFF FINAL; LYMPHOCYTE # 1.7 TH/MM3 (1.0-4.8); MEAN CELL VOLUME 84.7 FL (80.0-100.0); MEAN CORPUSCULAR HEMOGLOBIN 27.3 PG (27.0-34.0); MEAN CORPUSCULAR HGB CONC 32.3 % (32.0-36.0); MONO % 5.6 % (0.0-8.0); NEUT % 81.1 % (16.0-70.0); PLATELET COUNT 397 TH/MM3 (150-450); RED BLOOD COUNT 3.26 MIL/MM3 (4.50-5.90); RED CELL DISTRIBUTION WIDTH 17.7 % (11.6-17.2); WHITE BLOOD COUNT 12.8 TH/MM3 (4.0-11.0)
[2016-12-05] MEDS: guaiFENesin E.R. 600 MG TAB PO SCH ×2 (07:48→21:17)
[2016-12-05] MEDS: PANTOPRAZOLE SOD 40 MG DELAYED RELEASE TAB PO SCH (07:49)
[2016-12-05] MEDS: predniSONE 20 MG TAB PO SCH ×2 (07:49→21:17)
[2016-12-05] MEDS: INSULIN DETEMIR 100 UNITS/ML VIAL SQ SCH ×2 (07:49→21:18)
[2016-12-05] MEDS: INSULIN HUMAN REGULAR 1,000 UNITS/10 ML VIAL SQ SCH (07:50)
[2016-12-05 08:02] LABS: ALKALINE PHOSPHATASE 67 U/L (45-117); ALT (GPT) 68 U/L (12-78); ANION GAP 9 MEQ/L (5-15); AST (GOT) 18 U/L (15-37); BICARBONATE 25.6 MEQ/L (21.0-32.0); BLOOD UREA NITROGEN 19 MG/DL (7-18); CHLORIDE 103 MEQ/L (98-107); GLOMERULAR FILTRATION RATE 92 ML/MIN (>89); MAGNESIUM 2.1 MG/DL (1.5-2.5); POTASSIUM 3.9 MEQ/L (3.5-5.1); SODIUM (NA) 138 MEQ/L (136-145); TOTAL BILIRUBIN ADULT 0.1 MG/DL (0.2-1.0)
[2016-12-05] MEDS: INSULIN ASPART 1,000 UNITS/10 ML VIAL SQ SCH ×2 (12:22→16:27)
[2016-12-05] MEDS: ENOXAPARIN SODIUM 40 MG/0.4 ML SYRINGE SQ SCH (14:27)
--- NOTE | 2016-12-05 17:48 | HHI.PR ---
Subjective Remarks Deferred entry - patient seen earlier at 10 am Patient deneis cp/sob sob much improved blood sugars very elevated. Objective Vitals Vital Signs Date Time Temp Pulse Resp B/P Pulse Ox O2 Delivery O2 Flow Rate FiO2 12/05/16 12:00 97.5 93 18 106/63 94 12/05/16 08:03 Nasal Cannula 2.00 12/05/16 08:03 84 12/05/16 08:03 96 Nasal Cannula 2.00 12/05/16 08:00 97.4 80 20 123/63 97 12/05/16 04:07 91 12/05/16 04:00 97.3 90 20 106/65 94 12/05/16 00:00 97.5 87 20 100/57 94 12/04/16 21:15 Nasal Cannula 2.00 12/04/16 20:00 97.8 91 22 109/63 94 12/04/16 19:59 96 Nasal Cannula 2.00 I/O 12/04/16 12/04/16 12/04/16 12/05/16 12/05/16 12/05/16 07:00 15:00 23:00 07:00 15:00 23:00 Intake Total 500 ml 2520 ml 600 ml 240 ml Balance 500 ml 2520 ml 600 ml 240 ml Intake Oral 500 ml 720 ml 600 ml 240 ml IV Total 1800 ml # Voids 3 2 6 1 # Bowel Movements 0 2 0 0 Result Diagram: 12/05/16 0600 12/05/16 0600 Imaging Last Impressions Chest X-Ray 12/05/16 06 Signed Impressions: Service Date/Time: Monday, December 05, 2016 06:25 - CONCLUSION: Bullous emphysematous changes with a moderate sized air-fluid level on the left suggesting superimposed infection. Chalino Bowman Jr., MD Objective Remarks GENERAL: This is a well-nourished, well-developed patient, in no apparent distress. SKIN: No rashes, ecchymoses or lesions. Skin is diaphoretic. HEAD: Atraumatic. Normocephalic. EYES: No scleral icterus. No injection or drainage. ENT: Nose without bleeding, purulent drainage. NECK: Trachea midline. No JVD or lymphadenopathy. CARDIOVASCULAR: Regular rate and rhythm without murmurs, gallops, or rubs. RESPIRATORY: Decreased breath sounds bilateral, no wheezing or crackles. GASTROINTESTINAL: Abdomen soft, non-tender, nondistended. No guarding. MUSCULOSKELETAL: Extremities without clubbing, cyanosis, or edema. No calf tenderness. NEUROLOGICAL: Awake and alert. Motor and sensory grossly within normal limits. Normal speech. Medications and IVs Current Medications Medications (Trade) Dose Ordered Sig/[place] Route Start Time Stop Time Status Last Admin (D50w (Vial) Inj) 25 ml UNSCH PRN IV PUSH 12/02/16 21:30 (Glucagon Inj) 1 mg UNSCH PRN OTHER 12/02/16 21:30 Pantoprazole Sodium 40 mg 40 mg DAILY PO 12/03/16 09:00 12/05/16 07:49 (Levaquin 750 Mg Premix Inj) 150 ml @ 100 mls/hr Q24H IV 12/02/16 22:00 12/04/16 21:12 (Narcan Inj) 0.4 mg UNSCH PRN IV 12/03/16 14:15 (Mucinex Er) 600 mg BID PO 12/03/16 14:30 12/05/16 07:48 (Lovenox Inj) 40 mg Q24H SQ 12/03/16 15:00 12/05/16 14:27 (Deltasone) 20 mg BID PO 12/04/16 21:00 12/05/16 07:49 (Levemir Inj) 15 units Q12HR SQ 12/05/16 21:00 (NovoLOG INJ) 10 units TIDAC SQ 12/05/16 12:00 12/05/16 16:27 Urinary Catheter: No Vascular Central Line Catheter: No A/P Problem List: (1) Sepsis ICD Code: A41.9 Status: Acute Plan: Sepsis present on admission. Patient with leukocytosis and tachycardia with a heart rate of 108. Continue IV antibiotics, IV steroids, blood cultures negative 3 days. Influenza A and B antigens negative. seem to be resolved. (2) COPD exacerbation ICD Code: J44.1 Status: Acute Plan: Patient admitted to the medical floor. Continue IV antibiotics, patient getting IV Levaquin. Continue IV steroids. Continue with prednisone taper. Continue Mucinex ER for cough. (3) PNA (pneumonia) ICD Code: J18.9 Status: Acute Plan: Chest x-ray obtained on admission showed extensive ancillary symptoms changes bilaterally. A patchy infiltrate in the left midlung field. Continue IV Levaquin. Continue supplemental o2 to keep o2 sat >92%. (4) Hyperglycemia ICD Code: R73.9 Status: Acute Plan: Patient with uncontrolled blood sugars. Elevated into the 300's. Increase Levemir to 15 units subcutaneous every 12 hours and SSI with regular insulin as well as prandial insulin 5 units 3 times a day before meals. (5) Leukocytosis ICD Code: D72.829 Status: Acute Plan: Leukocytosis likely secondary to COPD with exacerbation and pneumonia. (6) Anemia ICD Code: D64.9 Status: Acute Plan: Patient has normal MCV anemia. I will check iron studies if not previously done. No signs of active bleeding. Continue to monitor CBC and hemoglobin. Hemoglobin trending down 10.5 to 9.2 to 8.9 also check stool guaiac. No signs of active bleeding. (7) Hyponatremia ICD Code: E87.1 Status: Acute Plan: Likely due to hypovolemic hyponatremia. Resolved after IV normal saline administration. Sodium now 138. (8) New onset type 2 diabetes mellitus ICD Code: E11.9 Status: Acute Plan: Patient's hemoglobin A1c 9.3. Appreciate family educator efforts. Hyperglycemia likely worsened by steroid use. I will discharge the patient on subcutaneous Levemir since the patient's blood sugars are uncontrolled. Will discharge on insulin Levemir and sliding scale with insulin NovoLog. Assessment and Plan GI prophylaxis: Continue Protonix by mouth Repeat reflexes: SCDs, continue Lovenox subcutaneously. Discharge Planning Possible discharge in a.m. pending control of blood sugars. Problem Qualifiers (1) Sepsis: Qualified Code: A41.9 - Sepsis, due to unspecified organism (2) PNA (pneumonia): Qualified Code: J18.1 - Pneumonia of left upper lobe due to infectious organism (3) Anemia: Qualified Code: D64.9 - Anemia, unspecified type Ag Craig MD Dec 05, 2016 17:48
--- NOTE | 2016-12-05 18:22 | HHI.PR ---
Subjective Remarks Better today. No fever. On O2 2 l. Good output. Objective Vital Signs Date Time Temp Pulse Resp B/P Pulse Ox O2 Delivery O2 Flow Rate FiO2 12/05/16 16:00 97.2 91 18 113/59 94 12/05/16 12:00 97.5 93 18 106/63 94 12/05/16 08:03 Nasal Cannula 2.00 12/05/16 08:03 84 12/05/16 08:03 96 Nasal Cannula 2.00 12/05/16 08:00 97.4 80 20 123/63 97 12/05/16 04:07 91 12/05/16 04:00 97.3 90 20 106/65 94 12/05/16 00:00 97.5 87 20 100/57 94 12/04/16 21:15 Nasal Cannula 2.00 12/04/16 20:00 97.8 91 22 109/63 94 12/04/16 19:59 96 Nasal Cannula 2.00 I/O 12/04/16 12/04/16 12/04/16 12/05/16 12/05/16 12/05/16 07:00 15:00 23:00 07:00 15:00 23:00 Intake Total 500 ml 2520 ml 600 ml 240 ml 720 ml Balance 500 ml 2520 ml 600 ml 240 ml 720 ml Intake Oral 500 ml 720 ml 600 ml 240 ml 720 ml IV Total 1800 ml # Voids 3 2 6 1 3 # Bowel Movements 0 2 0 0 1 Result Diagram: 12/05/16 0600 12/05/16 0600 Procedures No procedures performed Objective Remarks This is a middle-aged, well-built white male who is not Dyspneic at rest. HEENT: Head normocephalic. Pupils reactive. Tongue is moist. Throat is dry He has no inflammation. NECK: No bruits or thyroid enlargement or lymphadenopathy. CHEST: Distant breath sounds with occ wheezes over both lung grider. Prolonged expirations. HEART: The heart sounds are irregular, S1-S2. No murmur. No S3. ABDOMEN: Soft, protuberant without masses or organomegaly or tenderness. The bowel sounds are active. EXTREMITIES: Varicosities. No edema and normal reflexes. There were no gross motor or sensory deficits. NEUROLOGIC: Cranial nerve cranial nerves grossly intact. RECTAL: Exam deferred. Assessment and Plan Assessment and Plan IMPRESSION 1. COPD with acute exacerbation 2. Chronic left lung infiltrate with pulmonary fibrosis and bronchiectasis 3. Reactive airway disease Plan : 1. Switch to PO meds 2. O2 at 2 L. 3. Nebs qid , duoneb. 4. Add Prednisone 20 mg bid 5. Home over weekend Salas Carrion MD Dec 05, 2016 18:22
[2016-12-05] MEDS: LEVOFLOXACIN 750 MG PREMIX INJ 150 ML IV SCH (21:19)
[2016-12-06] VITALS (8 sets, daily range): BP systolic 109–135; BP diastolic 59–71; PULSE 82–92; RESP 16–18; TEMP 97.3–98.9; O2SAT 93–96
[2016-12-06] MEDS: RESP: ALBUTEROL 2.5 MG/IPRATROPIUM 0.5 MG NEB (SCH) NEB ×6 (00:23→13:14)
[2016-12-06 06:36] LABS: AUTOMATED NEUTROPHIL # 9.9 TH/MM3 (1.8-7.7); BASOPHIL % 0.1 % (0.0-2.0); EOSINOPHIL % 0.2 % (0.0-4.0); HEMATOCRIT 29.7 % (39.0-51.0); LYMPHOCYTE # 1.9 TH/MM3 (1.0-4.8); MEAN CELL VOLUME 83.8 FL (80.0-100.0); MEAN CORPUSCULAR HEMOGLOBIN 27.7 PG (27.0-34.0); MEAN CORPUSCULAR HGB CONC 33.1 % (32.0-36.0); MONO % 5.7 % (0.0-8.0); PLATELET COUNT 493 TH/MM3 (150-450); RED BLOOD COUNT 3.54 MIL/MM3 (4.50-5.90); RED CELL DISTRIBUTION WIDTH 17.8 % (11.6-17.2); WHITE BLOOD COUNT 12.5 TH/MM3 (4.0-11.0)
[2016-12-06 06:37] LABS: HEMO FLAGS AUTO DIFF
[2016-12-06 06:38] LABS: BICARBONATE 28.2 MEQ/L (21.0-32.0); POTASSIUM 4.7 MEQ/L (3.5-5.1)
[2016-12-06] MEDS: INSULIN NovoLIN REGULAR SUPPLEMENTAL SCALE SQ SCH ×2 (07:00→11:52)
[2016-12-06] MEDS: INSULIN ASPART 1,000 UNITS/10 ML VIAL SQ SCH ×2 (08:26→11:52)
[2016-12-06] MEDS: guaiFENesin E.R. 600 MG TAB PO SCH (08:26)
[2016-12-06] MEDS: PANTOPRAZOLE SOD 40 MG DELAYED RELEASE TAB PO SCH (08:26)
[2016-12-06] MEDS: INSULIN DETEMIR 100 UNITS/ML VIAL SQ SCH (08:26)
[2016-12-06] MEDS: predniSONE 20 MG TAB PO SCH (08:26)
[2016-12-06 09:24] LABS: PLATELET ESTIMATE SMEAR HIGH (NORMAL); PLATELET MORPHOLOGY NORMAL (NORMAL); SCAN/DIFF AUTO DIFF CONFIRMED
[2016-12-06 09:25] LABS: TARGET CELLS 1+ (NORMAL)
--- NOTE | 2016-12-06 12:39 | HHI.PR ---
Subjective Remarks seems Better today. No fever. On O2 2 l. Wheezing less. Objective Vital Signs Date Time Temp Pulse Resp B/P Pulse Ox O2 Delivery O2 Flow Rate FiO2 12/06/16 08:30 96 Nasal Cannula 2.00 12/06/16 08:15 Nasal Cannula 2.00 12/06/16 08:09 97.6 85 16 121/71 95 12/06/16 04:07 95 Nasal Cannula 2.00 12/06/16 04:00 97.7 92 18 135/59 93 12/06/16 00:26 95 Nasal Cannula 2.00 12/06/16 00:00 97.3 85 18 109/66 95 12/05/16 21:00 Nasal Cannula 2.00 12/05/16 20:00 97.4 84 18 103/63 94 12/05/16 20:00 90 12/05/16 19:26 97 Nasal Cannula 2.00 12/05/16 16:00 97.2 91 18 113/59 94 I/O 12/05/16 12/05/16 12/05/16 12/06/16 12/06/16 12/06/16 07:00 15:00 23:00 07:00 15:00 23:00 Intake Total 240 ml 720 ml 240 ml 420 ml Balance 240 ml 720 ml 240 ml 420 ml Intake Oral 240 ml 720 ml 240 ml 420 ml # Voids 1 3 2 2 # Bowel Movements 0 1 0 0 Result Diagram: 12/06/16 0539 12/06/16 0539 Procedures No procedures performed Objective Remarks This is a middle-aged, well-built white male who is alert. HEENT: Head normocephalic. Pupils reactive. Tongue is moist. Throat is dry He has no inflammation. NECK: No bruits or thyroid enlargement or lymphadenopathy. CHEST: Distant breath sounds with occ wheezes over both lung grider. HEART: The heart sounds are irregular, S1-S2. No murmur. No S3. ABDOMEN: Soft, protuberant without masses or organomegaly or tenderness. The bowel sounds are active. EXTREMITIES: Varicosities. No edema and normal reflexes. There were no gross motor or sensory deficits. NEUROLOGIC: Cranial nerve cranial nerves grossly intact. RECTAL: Exam deferred. Assessment and Plan Assessment and Plan IMPRESSION 1. COPD with acute exacerbation 2. Chronic left lung infiltrate with pulmonary fibrosis and bronchiectasis 3. Reactive airway disease Plan : 1. Switch to PO meds 2. O2 at 2 L. 3. Nebs qid , duoneb. 4. Prednisone 10 mg bid 5. Home today/ Will see in 2 weeks Salas Carrion MD Dec 06, 2016 12:39
[2016-12-06] MEDS ORDERED: INSU1MIS15 (13:10)
[2016-12-06] MEDS ORDERED: NOVORP2 SQ (13:10)
[2016-12-06] MEDS ORDERED: PRED20 PO (13:10)
[2016-12-06] MEDS ORDERED: LEVO500T3 PO (13:10)
[2016-12-06] MEDS ORDERED: LANCETS1 MI1 (13:10)
[2016-12-06] MEDS ORDERED: GLUCTES12 (13:10)
[2016-12-06] MEDS ORDERED: LEVEMIR SQ (13:10)
[2016-12-06] MEDS ORDERED: METF500T PO (13:10)
--- NOTE | 2016-12-06 13:11 | HHI.DCPOC ---
Discharge Care Plan Diagnosis: (1) COPD exacerbation (2) PNA (pneumonia) (3) Anemia (4) Hyperglycemia (5) Hyponatremia (6) Leukocytosis (7) Sepsis (8) New onset type 2 diabetes mellitus Goals to Promote Your Health * To prevent worsening of your condition and complications * To maintain your health at the optimal level Directions to Meet Your Goals Take your medications as prescribed Follow your dietary instruction Follow activity as directed Keep your appointments as scheduled Take your immunizations and boosters as scheduled If your symptoms worsen call your PCP, if no PCP go to Urgent Care Center or Emergency Room Smoking is Dangerous to Your Health. Avoid second hand smoke Call the 24-hour hour crisis hotline for domestic abuse at Ag Craig MD Dec 06, 2016 13:11
--- NOTE | 2016-12-06 13:13 | HHI.DS ---
Discharge Summary Admission Date Dec 02, 2016 at 18:31 Discharge Date: Dec 06, 2016 Admitting Diagnosis Sepsis, Pneumonia, COPD exacerbation (1) Sepsis ICD Code: A41.9 Diagnosis: Principal (2) COPD exacerbation ICD Code: J44.1 Diagnosis: Principal (3) PNA (pneumonia) ICD Code: J18.9 Diagnosis: Principal (4) Hyperglycemia ICD Code: R73.9 Diagnosis: Principal (5) Leukocytosis ICD Code: D72.829 Diagnosis: Principal (6) Anemia ICD Code: D64.9 Diagnosis: Principal (7) Hyponatremia ICD Code: E87.1 Diagnosis: Principal (8) New onset type 2 diabetes mellitus ICD Code: E11.9 Diagnosis: Principal Procedures none Brief History - From Admission Mr. Sage is a 56-year-old male with a past medical history of COPD and tobacco abuse who presented to the emergency department on 12/02/2016 for evaluation of fever and shortness of breath. He was admitted from 10/13/2016 to 10/20/2016 for COPD exacerbation, hypoxia, and pneumonia. He was treated with steroids, bronchodilators, and supplemental oxygen along with antibiotics. A bronchoscopy was done to 10/16/2016 showing mild endobronchitis and thick mucoid secretions. He was discharged on home oxygen. Chest x-ray showed extensive emphysematous changes bilaterally. Patchy infiltrate within the left mid lung field. White blood count 19.2 with neutrophilia. The patient is seen in the ER. He reports that he has been having progressively worsening dyspnea despite home oxygen over the past few days. He reports symptoms are accompanied by fevers, muscle aches, and joint pains. Denies cough, chest pain, dizziness, syncope, dysuria, hematuria, abdominal pain , nausea, vomiting, or black or red stools. Denies history of hypertension, CAD, CHF, afib, stroke, seizures, clots: DVT/PE , liver problems, or kidney problems. . CBC/BMP: 12/06/16 0539 12/06/16 0539 Significant Findings Laboratory Tests Test 12/04/16 12/05/16 12/06/16 18:13 06:00 05:39 White Blood Count 11.3 TH/MM3 12.8 TH/MM3 12.5 TH/MM3 (4.0-11.0) (4.0-11.0) (4.0-11.0) Red Blood Count 3.36 MIL/MM3 3.26 MIL/MM3 3.54 MIL/MM3 (4.50-5.90) (4.50-5.90) (4.50-5.90) Hemoglobin 9.2 GM/DL 8.9 GM/DL 9.8 GM/DL (13.0-17.0) (13.0-17.0) (13.0-17.0) Hematocrit 28.4 % 27.6 % 29.7 % (39.0-51.0) (39.0-51.0) (39.0-51.0) Red Cell Distribution Width 17.9 % 17.7 % 17.8 % (11.6-17.2) (11.6-17.2) (11.6-17.2) Neutrophils (%) (Auto) 88.5 % 81.1 % 79.0 % (16.0-70.0) (16.0-70.0) (16.0-70.0) Lymphocytes (%) (Auto) 8.9 % (9.0-44.0) Neutrophils # (Auto) 10.0 TH/MM3 10.4 TH/MM3 9.9 TH/MM3 (1.8-7.7) (1.8-7.7) (1.8-7.7) Blood Urea Nitrogen 20 MG/DL (7-18) 19 MG/DL (7-18) 22 MG/DL (7-18) Estimat Glomerular Filtration 83 ML/MIN (>89) 84 ML/MIN (>89) Rate Random Glucose 140 MG/DL 251 MG/DL 180 MG/DL (74-106) (74-106) (74-106) Total Bilirubin 0.1 MG/DL 0.1 MG/DL (0.2-1.0) (0.2-1.0) Alanine Aminotransferase 81 U/L (12-78) (ALT/SGPT) Albumin 2.1 GM/DL 1.9 GM/DL (3.4-5.0) (3.4-5.0) Platelet Count 493 TH/MM3 (150-450) Platelet Estimate HIGH (NORMAL) Target Cells 1+ (NORMAL) Imaging Last Impressions Chest X-Ray 12/05/16 0600 Signed Impressions: Service Date/Time: Monday, December 05, 2016 06:25 - CONCLUSION: Bullous emphysematous changes with a moderate sized air-fluid level on the left suggesting superimposed infection. Chalino Bowman Jr., MD PE at Discharge GENERAL: This is a well-nourished, well-developed patient, in no apparent distress. SKIN: No rashes, ecchymoses or lesions. Skin is diaphoretic. HEAD: Atraumatic. Normocephalic. EYES: No scleral icterus. No injection or drainage. ENT: Nose without bleeding, purulent drainage. NECK: Trachea midline. No JVD or lymphadenopathy. CARDIOVASCULAR: Regular rate and rhythm without murmurs, gallops, or rubs. RESPIRATORY: Decreased breath sounds bilateral, no wheezing or crackles. GASTROINTESTINAL: Abdomen soft, non-tender, nondistended. No guarding. MUSCULOSKELETAL: Extremities without clubbing, cyanosis, or edema. No calf tenderness. NEUROLOGICAL: Awake and alert. Motor and sensory grossly within normal limits. Normal speech. Hospital Course (1) Sepsis Sepsis present on admission. Patient with leukocytosis and tachycardia with a heart rate of 108. Treated with IV antibiotics, IV steroids, blood cultures negative 3 days. Influenza A and B antigens negative. Resolved prior to patient being discharge. (2) COPD exacerbation Patient admitted to the medical floor. Status post treatment with IV Levaquin , IV Solu-Medrol which was then tapered to oral prednisone. Mucinex ER was prescribed for cough. (3) PNA (pneumonia) Chest x-ray obtained on admission showed extensive ancillary symptoms changes bilaterally. A patchy infiltrate in the left midlung field. Continue IV Levaquin. Continue supplemental o2 to keep o2 sat >92%. (4) Hyperglycemia Patient with uncontrolled blood sugars. Elevated into the 300's. Increase Levemir to 15 units subcutaneous every 12 hours and SSI with regular insulin as well as prandial insulin 5 units 3 times a day before meals. (5) Leukocytosis Leukocytosis likely secondary to COPD with exacerbation and pneumonia. (6) Anemia Plan: Patient has normal MCV anemia. I will check iron studies if not previously done. No signs of active bleeding. Continue to monitor CBC and hemoglobin. Hemoglobin trending down 10.5 to 9.2 to 8.9 also check stool guaiac. No signs of active bleeding. (7) Hyponatremia Likely due to hypovolemic hyponatremia. Resolved after IV normal saline administration. Sodium now 138. (8) New onset type 2 diabetes mellitus Patient's hemoglobin A1c 9.3. Appreciate rn diabetes educator efforts. Hyperglycemia likely worsened by steroid use. I will discharge the patient on subcutaneous Levemir since the patient's blood sugars are uncontrolled. Will discharge on insulin Levemir and sliding scale with insulin NovoLog. GI prophylaxis: Continue Protonix by mouth Repeat reflexes: SCDs, continue Lovenox subcutaneously. Pt Condition on Discharge: Stable Discharge Disposition: Discharge Home Discharge Time: <= 30 minutes Discharge Instructions DIET: Follow Instructions for: Diabetic Diet Activities you can perform: Regular-No Restrictions Follow up Referrals: PCP Follow-up - 1 Week Pulmonology - 2 Weeks New Medications: Glucocom Test Strips (Glucocom Test Strips) 1 Charmaine Charmaine 1 EA .ROUTE DIRECTED Blood Sugar Management #120 BOX Insulin Human Regular Inj (Novolin R Inj) 1,000 Unit/10 Ml Vial 2-10 UNITS SQ DIRECTED Max dose at bedtime:( )units; sugars less than 150,(0 ) units; sugars 150-199,(2)unit; sugars 200-249,(4)units; sugars 250-299,(6) units; sugars 300-349,(8)units; sugars equal to or greater than 350,(10)units Blood Sugar Management #10 Ref 0 ML Insulin Syringe/U-100/31G X 5/16" 1 ml (Insulin Syringe/U-100/31G X 5/16" 1 ml) 1 Mis Mis 1 EA .ROUTE DIRECTED Blood Sugar Management #1 Ref 0 BOX Lancets (Lancets) 1 Mis Mis 1 EA .ROUTE DIRECTED Blood Sugar Management #1 Ref 0 BOX Metformin (Metformin) 500 Mg Tab 500 MG PO BIDPC With meals Blood Sugar Management #60 Ref 0 TAB Insulin Detemir Inj (Levemir Inj) 1,000 unit/ 10 ML Vial 15 UNITS SQ Q12HR Blood Sugar Management #1 VIAL Continued Medications: Albuterol 18 GM Inh (Ventolin Hfa 18 GM Inh) 90 Mcg/Act Aer 1 PUFF INH Q4H PRN SHORTNESS OF BREATH #1 Ref 1 INHALER Albuterol Neb (Albuterol Neb) 2.5 Mg/0.5 Ml Neb 2.5 MG NEB QID NEB Note: The Albuterol Sulfate Inhalation Solution is concentrated and must be diluted. Read complete instructions carefully before using. Breathing Treatment #120 Ref 6 NEBULE Budesonide-Formoterol Inh (Symbicort Inh) 160-4.5 Mcg/Act Aero 2 PUFF INH Q12HR COPD #2 INHALER Discontinued Medications: Prednisone (Prednisone) 5 Mg Tab 5 MG PO DAILY #30 Ref 0 TAB Ag Craig MD Dec 06, 2016 13:13
[2016-12-17] MEDS ORDERED: METH125I2 IM (09:48)
[2016-12-30] MEDS ORDERED: LEVEMIR SQ (07:46)
[2017-01-14] MEDS ORDERED: BAYETES (09:13)
[2017-01-16] MEDS ORDERED: PRED5TAB PO (14:53)
[2017-01-28] MEDS ORDERED: ADVA250A INH (14:19)
[2017-02-06] MEDS ORDERED: METF500T PO (16:19)
[2017-02-10] MEDS ORDERED: INSU1MIS15 (15:16)
[2017-02-16] MEDS ORDERED: INSU1MIS15 (13:09)
[2017-03-11] MEDS ORDERED: PRED5TAB PO (06:31)
[2017-03-11] MEDS ORDERED: ALBU.5I NEB (06:31)
== END 2016-12-06 15:00 | disposition home or self-care (01) | DRG 871 ==
LOC: NEPC 15:43 → NEDA 18:31 → N04A 23:50
PROVIDERS: ADMIT Hospitalist; ATTEND Hospitalist
PROC: 3E0F7GC Introduction of Other Therapeutic Substance into Respiratory Tract, Via Natural or Artificial Opening (ICD-10-PCS; principal; 2016-12-02)
DX: A41.9 Sepsis, unspecified organism (principal); J18.9 Pneumonia, unspecified organism; J84.10 Pulmonary fibrosis, unspecified; J44.0 Chronic obstructive pulmonary disease with (acute) lower respiratory infection; J44.1 Chronic obstructive pulmonary disease with (acute) exacerbation; E87.1 Hypo-osmolality and hyponatremia; Z99.81 Dependence on supplemental oxygen; D64.9 Anemia, unspecified; Z87.01 Personal history of pneumonia (recurrent); Z79.51 Long term (current) use of inhaled steroids; F12.90 Cannabis use, unspecified, uncomplicated; J45.909 Unspecified asthma, uncomplicated; F17.200 Nicotine dependence, unspecified, uncomplicated; T38.0X5A Adverse effect of glucocorticoids and synthetic analogues, initial encounter; R73.9 Hyperglycemia, unspecified; Z23 Encounter for immunization
CPT/HCPCS: 71010; 71020; 80048; 80053; 82550; 82948; 83036; 83605; 83735; 83880; 84100; 84484; 85025; 87040; 87804; 90732; 93005; 93306; 94150; 94640; 94664; 96361; 96365; 96375; J0456; J0696; J1650; J1815; J1956; J2920; J2930; J7030; J7040; J7050; J7512

== ENCOUNTER → 2017-03-04 | Outpatient (CLI) | payer OTHER ==
[~2017-03-04] MED LIST changes: +ADVA250A INH; +BAYETES; +GLUCTES12; +INSU1MIS15; +LANCETS1 MI1; +LEVEMIR SQ; +METF500T PO; +NOVORP2 SQ; -SYMB160A INH
[2017-03-04 11:18] LABS: LDL CHOLESTEROL 74 MG/DL (0-99)
[2017-03-04 17:14] LABS: HEMOGLOBIN A1a 1.2 %; HEMOGLOBIN A1b 1.7 %; HEMOGLOBIN Ao 84.8 %
== END ==
LOC: CLAB 10:30
PROVIDERS: ATTEND Nurse Practitioner Family
DX: E11.9 Type 2 diabetes mellitus without complications (principal); E66.9 Obesity, unspecified
CPT/HCPCS: 36415; 80061; 83036